=== PATIENT | male | born 1960 | race Caucasian/White ===

== ENCOUNTER 2016-10-28 06:56 | Day surgery (SDC) | payer MEDICARE, MEDICAID ==
[2016-10-28] MEDS ORDERED: SODIUM CHLORIDE 0.9% 1,000 ML IV ONE (07:23)
[2016-10-28] MEDS ORDERED: HYDROmorphone 1 MG/ML SYRINGE IVP STA ×2 (07:23→09:34)
[2016-10-28] MEDS ORDERED: ONDANSETRON 4 MG/2 ML VIAL IVP STA (07:23)
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
[2016-10-28] MEDS ORDERED: ONDANSETRON 4 MG/2 ML VIAL ONE (07:33)
[2016-10-28] MEDS ORDERED: HYDROmorphone 1 MG/ML SYRINGE ONE ×3 (07:33→15:20)
[2016-10-28 07:41] LABS: BASOPHILS # (AUTO) 0.1 10^3/uL (0.0-0.1); BASOPHILS % (AUTO) 0.9 %; EOSINOPHILS # (AUTO) 0.2 10^3/uL (0.0-0.7); EOSINOPHILS % (AUTO) 2.8 %; HCT - HEMATOCRIT 42.7 % (42.0-52.0); HGB - HEMOGLOBIN 14.5 g/dL (14.0-18.0); LYMPHOCYTES # (AUTO) 1.2 10^3/uL (1.5-3.5); LYMPHOCYTES % (AUTO) 16.6 %; MEAN CORPUSCULAR HEMOGLOBIN 30.7 pg (27.0-31.0); MEAN CORPUSCULAR HGB CONC 33.9 g/dL (32.0-36.0); MEAN CORPUSCULAR VOLUME 90.7 fL (80.0-94.0); MEAN PLATELET VOLUME 8.3 fL (7.4-11.4); MONOCYTES # (AUTO) 0.6 10^3/uL (0.0-1.0); MONOCYTES % (AUTO) 8.2 %; NEUTROPHILS % (AUTO) 71.5 %; RED BLOOD COUNT 4.71 10^6/uL (4.70-6.10); RED CELL DISTRIBUTION WIDTH 13.1 % (12.0-15.0); UNCORRECTED WHITE BLOOD COUNT 6.9 x10^3/uL; WHITE BLOOD COUNT 6.9 x10^3/uL (4.8-10.8)
[2016-10-28 07:52] LABS: ALBUMIN/GLOBULIN RATIO 1.4 (1.0-2.2); BILIRUBIN,TOTAL 0.7 mg/dL (0.2-1.0); CALCIUM 8.7 mg/dL (8.5-10.3); POTASSIUM 4.1 mmol/L (3.5-5.0); TOTAL PROTEIN 6.8 g/dL (6.7-8.2)
--- NOTE | 2016-10-28 09:36 | XRAY Preliminary Report ---
Exam: XR Ribs w/PA Chest RT IMPRESSION: 1. No rib fracture evident. 2. No pneumothorax or pleural effusion. 3. Elongated lucency within proximal left humeral shaft adjacent to proximal humeral prosthesis. Ques tion prosthesis loosening. Recommend clinical correlation, dedicated left humeral series and comparis on to prior exams. [facility] SITE ID: [id number]
--- NOTE | 2016-10-28 12:06 | Ultrasound Report ---
RIGHT UPPER QUADRANT ULTRASOUND: 10/28/2016 CLINICAL INDICATION: Pain. TECHNIQUE: Real-time scanning was performed with traffic representative static images obtained. FINDINGS: Image quality is limited by patient body habitus and hepatic echogenicity. The liver measures at least 25 cm. Hepatic echogenicity is diffusely increased, with penetration butt ited. Likely small cysts are noted in the anterior left lobe. Questionable fatty sparing is seen an terior to the portal vein. The majority of the right lobe is poorly visualized. The common bile emigdio t is not confidently identified. The gallbladder demonstrates cholelithiasis. The right kidney vinny ures 9.7 cm, and demonstrates no hydronephrosis. IMPRESSION: CHOLELITHIASIS. MARKEDLY ECHOGENIC LIVER, LIMITING EVALUATION. JOB #: [id number] EXT JOB #:
[2016-10-28] MEDS ORDERED: BUPIVACAINE 0.5% PF 30 ML VIAL INFIL ONE (13:37)
[2016-10-28] MEDS ORDERED: LACTATED RINGERS 1,000 ML IV ONE (13:37)
[2016-10-28] MEDS ORDERED: NEOSTIGMINE 1 MG/1 ML 10 ML MDV IVP ONE (14:00)
[2016-10-28] MEDS ORDERED: ROCURONIUM 50 MG/5 ML VIAL IVP ONE (14:00)
[2016-10-28] MEDS ORDERED: GLYCOPYRROLATE 1 MG/5 ML VIAL IVP ONE (14:00)
[2016-10-28] MEDS ORDERED: ONDANSETRON 4 MG/2 ML VIAL IVP ONE (14:00)
[2016-10-28] MEDS ORDERED: ePHEDrine 50 MG/ML VIAL IVP ONE (14:00)
[2016-10-28] MEDS ORDERED: PROPOFOL 200 MG/20 ML VIAL IVP ONE (14:00)
[2016-10-28] MEDS ORDERED: PIPERACILLIN/TAZOBACTAM 3.375 GM in SODIUM CHLORIDE 0.9% MINIBAG 100 ML IV SCH (14:00)
[2016-10-28] MEDS ORDERED: LIDOCAINE-MPF 2% 5 ML VIAL IM ONE (14:00)
[2016-10-28] MEDS ORDERED: SUCCINYLCHOLINE 200 MG/10 ML VIAL IVP ONE (14:00)
[2016-10-28] MEDS ORDERED: MIDAZOLAM 2 MG/2 ML VIAL IVP ONE (14:00)
[2016-10-28] MEDS ORDERED: DEXAMETHASONE 4 MG/ML VIAL IVP ONE (14:00)
[2016-10-28] MEDS ORDERED: KETOROLAC 30 MG/ML VIAL IVP ONE (14:00)
[2016-10-28] MEDS ORDERED: ACETAMINOPHEN 1,000 MG/100 ML VIAL IV ONE (14:00)
[2016-10-28] MEDS ORDERED: fentaNYL 100 MCG/2 ML VIAL IVP ONE (14:00)
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
[2016-10-28] MEDS: fentaNYL 100 MCG/2 ML VIAL ONE ×2 (15:12→15:17)
[2016-10-28] MEDS ORDERED: oxyCOD/ACETAMIN 5 MG/325 MG TABLET PO ONE (15:43)
[2016-10-28 16:33] VITALS: BP 136/88
--- NOTE | 2016-10-29 11:31 | OPERATIVE REPORT ---
DATE OF SURGERY: 10/28/2016 00:00:00 PREOPERATIVE DIAGNOSIS: 1. Biliary colic. 2. Hepatomegaly. 3. Ventral hernia. POSTOPERATIVE DIAGNOSIS: 1. Biliary colic. 2. Hepatomegaly. 3. Ventral hernia. NAME OF PROCEDURE: Laparoscopic cholecystectomy, with ventral herniorrhaphy and Tu-Cut liver biopsy . SURGEON: Tu Rice M.D. ANESTHESIA: Márquez (General endotracheal, plus 30 mL of 0.5% Marcaine). ESTIMATED BLOOD LOSS: Less than 5 mL. URINE OUTPUT: 200 mL. FLUIDS: 1700 mL of crystalloid. SPECIMEN REMOVED: Gallbladder and contents. Please note the hernia sac was not sent for pathologic evaluation. DETAILS OF PROCEDURE: After informed consent was obtained detailing the risks of infection, bleeding with all of its risks including transfusion, bile duct injury, and , the patient was brought to the operative suite and placed supine on the operating room table. The patient received preoperativ e antibiotics for prophylaxis against surgical infection. The patient had TEDs and Venodynes placed for prophylaxis against deep venous thrombosis. General endotracheal anesthesia was induced by Evaristo Márquez, and Evaristo Márquez provided anesthesia care for the entirety of the case. The patient was p repped and draped in the usual standard manner. At this point, a time-in was done that confirmed the patient's identity via three separate identifier s, including the patient's name, date of , and medical record number, as well as the fact that t he consent was in the chart, the history and physical had been done, the proposed procedure, the kiana ent's allergies, the patient's medications, and that we had the personnel and equipment required to p erform the proposed procedure. With the agreement of everyone in the room, the operation was allowed to proceed. A vertical incision was made at the midline overlying the ventral hernia, which was located in the oconnor praumbilical position. This was selected as a site due to the patient's body habitus and that normal laparoscopic equipment would not be able to reach the subhepatic space if we had gone in the umbilic us, and in addition to which I was able to repair this and use the ventral hernia as the point of ent ry into the abdomen. Dissection was carried out down to the hernia sac using primarily Bovie electro cautery. Hemostasis was obtained using Bovie electrocautery. The sac was excised using Bovie electr ocautery. Next, 0-PDS as well as some #1-PDS sutures were then placed in the fascia superiorly and i nferiorly to allow for placement of the balloon-tipped blunt-tipped 12 mm cannula and to allow for in sufflation of the abdomen. The upper sutures were tied, thus closing the fascial defect partially to allow for insufflation to occur. The cannula was placed. The other sutures were snugged down tight , but were not tied. The abdomen was then insufflated to a steady state pressure of 15 mmHg with car bon dioxide. Following placement of this port, the patient was then rotated onto his left side and i nto reverse Trendelenburg position to allow for visualization of the liver and gallbladder. Three ad ditional 5 mm ports were placed in the subxiphoid, as well as the subcostal position. The two in the subcostal position were placed in the midclavicular line, as well as the anterior axillary line. Al l of these were placed under direct vision and without incident. The lateral two most ports were use d to place graspers to grab the gallbladder and rotate it superiorly and laterally to allow for disse ction. The subxiphoid port was used as the primary dissecting port. The cystic duct and artery were dissect ed free from the surrounding tissues. These were clearly seen, and the critical view was seen and ph otographed. The cystic artery was first doubly clipped proximally and distally, and transected, foll owed by the cystic duct, which was doubly clipped proximally and distally. This was also transected. The gallbladder was then removed from the liver bed using serial application of Bovie electrocauter y. The gallbladder itself was not entered, nor was there bleeding from the liver bed. Once the gall bladder was free, photographs were taken of the gallbladder bed as well as the gallbladder that had j ust been removed from the gallbladder bed. This was placed into an EndoPouch, which was placed throu gh the 12 mm port. The 30-degree 5 mm camera was placed in the subxiphoid port to allow for visualiz ation of this. With the gallbladder in the EndoPouch, attention was placed to performing a Tu-Cut l iver biopsy due to the patient's hepatomegaly. A small stab incision was made in the right upper irma drant using a #11-blade knife. Through this was inserted a Tu-Cut needle. Under direct vision, the liver was biopsied. The needle hole was cauterized using Bovie electrocautery. An adequate specime n was obtained and placed in formalin for evaluation. There was no bleeding noted from the liver bio psy site. In fact, a photograph was taken to confirm this. All four port sites were then injected u sing 0.5% Marcaine for long-term anesthetic control. This was done at the peritoneal, fascial, and s kin levels. The 12 mm port was removed from the supraumbilical position, and the gallbladder, safely ensconced in the EndoPouch, was similarly removed. This was sent off for pathologic evaluation. The previously placed sutures were then tied tight, closing the fascia. Two additional sutures with #0-PDS and #1-P DS were similarly placed to close the fascia securely and thus repair his ventral hernia. The subcut aneous tissues at the ventral hernia site were closed using an 0-Vicryl suture. The skin was approxi mated at all port sites using a 4-0 Monocryl in a running subcuticular fashion. The place where the Tu-Cut needle biopsy was placed did not require suture closure. It was far too small. The patient was subsequently extubated and taken to the recovery room in good and stable condition, h aving tolerated this procedure well. Please note a time-out was done at the conclusion of the case, confirming the operation done, the estimated blood loss, the urine output, the fluids that were given , and any changes that could be done that might improve the operation in the future. The patient was then taken to the recovery room in good and stable condition, having tolerated the procedure well. JOB #: [id number] EXT JOB #:[id number]
--- NOTE | 2016-11-16 12:46 | XRAY Report ---
EXAM: PA CHEST AND RIGHT RIB RADIOGRAPHY EXAM DATE: 10/28/2016 0842 AM. CLINICAL HISTORY: R rib pain. COMPARISON: None. TECHNIQUE: 2 views. FINDINGS: Bones: Normal. No fracture or bone lesion. Lungs: No focal opacities evident. no pneumothorax or pleural effusions. Mediastinum: Heart and cardiomediastinal contours are unremarkable. Other: Prior left shoulder replacement. Elongated lucency along proximal left humeral shaft adjacent to the prosthesis. IMPRESSION: 1. No rib fracture evident. 2. no pnemothorax or pleural effusion. 3. Elongated lucency within proximal left humeral shaft adjacent to proximal humeral prosthesis. Question prosthesis loosening. Recommend clinical correlation, dedicated left humeral series and comparison to prior exams. [facility] MTDD
== END 2016-10-28 12:58 | disposition home or self-care (01) ==
LOC: ED 06:56 → SDS 12:57
PROVIDERS: ATTEND Surgery
PROC: 0FB03ZX Excision of Liver, Percutaneous Approach, Diagnostic (ICD-10-PCS; 2016-10-28)
PROC: 0FT44ZZ Resection of Gallbladder, Percutaneous Endoscopic Approach (ICD-10-PCS; principal; 2016-10-28 13:00)
DX: K80.44 Calculus of bile duct with chronic cholecystitis without obstruction (principal); K43.9 Ventral hernia without obstruction or gangrene; K76.0 Fatty (change of) liver, not elsewhere classified; R16.0 Hepatomegaly, not elsewhere classified; I50.20 Unspecified systolic (congestive) heart failure; I10 Essential (primary) hypertension; T84.038D Mechanical loosening of other internal prosthetic joint, subsequent encounter; Z87.891 Personal history of nicotine dependence; E66.01 Morbid (severe) obesity due to excess calories; Z68.41 Body mass index [BMI] 40.0-44.9, adult; R73.9 Hyperglycemia, unspecified; Z96.612 Presence of left artificial shoulder joint; Z80.8 Family history of malignant neoplasm of other organs or systems; Z83.3 Family history of diabetes mellitus; R06.83 Snoring
CPT/HCPCS: 36415; 47001; 47562; 71101; 76705; 80053; 83690; 85025; 88304; 88307; 88313; 96374; 96375; 96376; 99283; 99284; A9270; J0131; J1170; J7120

== ENCOUNTER 2016-11-06 12:15 | Emergency (ER) | payer MEDICARE, MEDICAID ==
[2016-11-06 14:05] LABS: ALBUMIN/GLOBULIN RATIO 1.3 (1.0-2.2); BILIRUBIN,TOTAL 0.6 mg/dL (0.2-1.0); CALCIUM 9.1 mg/dL (8.5-10.3); CREATININE 1.4 mg/dL (0.6-1.2); MEAN CORPUSCULAR HGB CONC 33.9 g/dL (32.0-36.0); POTASSIUM 4.3 mmol/L (3.5-5.0); UNCORRECTED WHITE BLOOD COUNT 7.6 x10^3/uL; WHITE BLOOD COUNT 7.6 x10^3/uL (4.8-10.8)
[2016-11-06 14:12] VITALS: BP 114/103
[2016-11-06 14:34] LABS: BASOPHILS # (AUTO) 0.1 10^3/uL (0.0-0.1); BASOPHILS % (AUTO) 0.9 %; EOSINOPHILS # (AUTO) 0.3 10^3/uL (0.0-0.7); EOSINOPHILS % (AUTO) 4.5 %; HCT - HEMATOCRIT 41.4 % (42.0-52.0); LYMPHOCYTES # (AUTO) 1.2 10^3/uL (1.5-3.5); LYMPHOCYTES % (AUTO) 16.4 %; MEAN CORPUSCULAR HEMOGLOBIN 30.5 pg (27.0-31.0); MEAN CORPUSCULAR VOLUME 90.2 fL (80.0-94.0); MEAN PLATELET VOLUME 9.1 fL (7.4-11.4); MONOCYTES # (AUTO) 0.7 10^3/uL (0.0-1.0); MONOCYTES % (AUTO) 8.9 %; NEUTROPHILS # (AUTO) 5.3 10^3/uL (1.5-6.6); NEUTROPHILS % (AUTO) 69.3 %; RED BLOOD COUNT 4.59 10^6/uL (4.70-6.10); RED CELL DISTRIBUTION WIDTH 12.9 % (12.0-15.0)
--- NOTE | 2016-11-06 15:10 | CT Preliminary Report ---
Exam: CT Abdomen/Pelvis W/O IMPRESSION: 1. Colonic diverticulosis without evidence of diverticulitis. 2. Fatty infiltration of the liver. 3. Fat-containing supraumbilical hernia. 4. 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 [facility] SITE ID: [id number]
--- NOTE | 2016-11-06 15:13 | CT Report ---
EXAM: CT ABDOMEN AND PELVIS EXAM DATE: 11/06/2016 02:31 PM. CLINICAL HISTORY: Postoperative abdominal pain and distention. COMPARISONS: None. TECHNIQUE: Routine helical CT imaging was performed through the abdomen and pelvis. IV contrast: None . Enteric contrast: No. Reconstructions: Coronal and sagittal. In accordance with CT protocol optimization, one or more of the following dose reduction techniques w ere utilized for this exam: automated exposure control, adjustment of mA and/or KV based on patient s ize, or use of iterative reconstructive technique. FINDINGS: Lung Bases: Small bulla within the right lower lobe with subpleural pulmonary nodules, largest measur ing 5 mm. Liver: Normal in contour with a cyst near the dome measuring 10 mm. Some focal increased density devang cent to the gallbladder fossa, likely focal fatty sparing. Diffusely decreased density of the liver c onsistent with mild fatty infiltration. Gallbladder/Bile Ducts: Status post cholecystectomy. Spleen: Normal. Pancreas: Normal. Adrenal Glands: Normal. Kidneys: Normal. No masses or hydronephrosis. Peritoneal Cavity/Bowel: Fat-containing supraumbilical hernia. The stomach is unremarkable and there are no dilated loops of large or small intestine. Appendix is u nremarkable. Note is made of underlying diverticular disease of the colon without focal inflammation. Pelvic Organs: Normal. The bladder and visualized pelvic organs are within normal limits. Vasculature: Atherosclerosis without abdominal aortic aneurysm. Bones: Status post right total hip replacement. Spondylolysis L5 with anterolisthesis at L5-S1 measur ing 6 mm. Other: None. IMPRESSION: 1. Colonic diverticulosis without evidence of diverticulitis. 2. Fatty infiltration of the liver. 3. Fat-containing supraumbilical hernia. 4. 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 [facility] Referring Provider Line: [phone] SITE ID: [id number]
--- NOTE | 2016-11-06 15:26 | ED Physician Documentation ---
History of Present Illness - Stated complaint Stated Complaint: POST OP SITE REDNESS - Chief complaint Chief Complaint: Wound - Additonal information Additional information: hx from pt 56 male s/p lap moody, ventral hernia repair and liver bx followed up in clinic and had some erythema around the incisions and was started on bactrim increased redness now no fever NVD having BMs thinks he is a bit bloated Review of Systems Constitutional: denies: Fever, Chills GI: reports: Abdominal Swelling Skin: reports: Rash PD PAST MEDICAL HISTORY - Past Surgical History General: Cholecystectomy - Present Medications Home Medications: Ambulatory Orders Medication Instructions Recorded Confirmed Aspirin [Aspirin EC] 81 mg PO DAILY 10/28/16 10/28/16 Carvedilol [Coreg] 12.5 mg PO BID 10/28/16 10/28/16 Furosemide [Lasix] 40 mg PO DAILY 10/28/16 10/28/16 Hydrocodone/Acetaminophen 1 tab PO Q4H 10/28/16 10/28/16 [Hydrocodon-Acetaminophn 10-325] Losartan Potassium [Cozaar] 100 mg PO DAILY 10/28/16 10/28/16 Omeprazole [PriLOSEC] 20 mg PO QDAC 10/28/16 10/28/16 Simvastatin [Zocor] 40 mg PO QPM 10/28/16 10/28/16 buPROPion [Wellbutrin Xl] 150 mg PO DAILY 10/28/16 10/28/16 Cephalexin [Keflex] 500 mg PO Q6H #28 capsule 11/06/16 Mupirocin Calcium [Bactroban] 1 applic TP BID #30 g 11/06/16 - Allergies Allergies/Adverse Reactions: Allergies Allergy/AdvReac Type Severity Reaction Status Date / Time No Known Drug Allergies Allergy Verified 11/06/16 12:23 - Social History Does the pt smoke?: No Smoking Status: Never smoker Does the pt drink ETOH?: No Does the pt have substance abuse?: No - Immunizations Immunizations: TDAP >10years/unknown - POLST Patient has POLST: No PD ED PE NORMAL - Vitals Vital signs reviewed: Yes - Neck Neck: Supple, no meningeal sign - Cardiac Cardiac: RRR - Respiratory Respiratory: No respiratory distress, Clear bilaterally - Abdomen Abdomen: Other (mod distension, + BS, NT, eruthema round umbilical incisions and also around RQ port incisions, papular rash to back, no oral lesions) Results - Vitals Vitals: Vital Signs - 24 hr 11/06/16 11/06/16 12:19 14:12 Temperature 35.9 C L Heart Rate 75 72 Respiratory 14 17 Rate Blood Pressure 139/88 H 114/103 H O2 Saturation 98 96 Oxygen O2 Source Room air - Labs Labs: Laboratory Tests 11/06/16 11/06/16 13:30 13:30 WBC 7.6 RBC 4.59 L Hgb 14.0 Hct 41.4 L MCV 90.2 MCH 30.5 MCHC 33.9 RDW 12.9 Plt Count 279 MPV 9.1 Neut # 5.3 Lymph # 1.2 L [place] # 0.7 Eos # 0.3 Baso # 0.1 Absolute Nucleated RBC 0.00 Nucleated RBCs 0.0 Sodium 140 Potassium 4.3 Chloride 104 Carbon Dioxide 25 Anion Gap 11.0 BUN 14 Creatinine 1.4 H Estimated GFR (MDRD) 52 L Glucose 112 H Calcium 9.1 Total Bilirubin 0.6 AST 22 ALT 33 Alkaline Phosphatase 88 Total Protein 7.0 Albumin 4.0 Globulin 3.0 Albumin/Globulin Ratio 1.3 Lipase 26 - Rads (name of study) CT abd pelvis Radiology: See rad report (diverticulosis no - itis, fatty infiltration of the liver, fat containing supraumbical hernia spondylosis) PD MEDICAL DECISION MAKING - ED course ED course: seen by surgeon as well will dc bactrim that was started earlier this week because 1) cellulitis seems worse an 2) the papular rash may be a drug rxn and 3) his renal fxn has declined on the bactrim will change to keflex and bactroban Departure - Departure Disposition: 01 Home, Self Care Clinical Impression: Renal insufficiency Postoperative wound cellulitis Qualifiers: Encounter type: initial encounter Qualified Code(s): T81.4XXA - Infection following a procedure, initial encounter Condition: Good Instructions: ED Infec Skin Cellulitis Prescriptions: Mupirocin Calcium [Bactroban] 1 applic TP BID #30 g Cephalexin [Keflex] 500 mg PO Q6H #28 capsule Comments: Stop the bactrim - it doesnt seem to be helping the infection and it is affecting your kidneys and may be causing the rash on your back Change to keflex 4 X daily Also apply bactroban cream or ointment to the incisions twice daily for a week Follow in surgery clinic for a recheck later this week Also the CT scan shows that there is some fat protruding where the hernia repair was done so the hernia may re-occur and you have some diverticulosis which is small pouches that develop along the coon wall over time - this is not dangerous unless one of the pouches becomes infected which is not the case for you today And please follow up with your PMD about your blood pressure - it was high today - also have your PMD recheck your kidney function in a week
== END 2016-11-06 15:53 | disposition home or self-care (01) ==
LOC: ED 12:15
DX: T81.4XXA Infection following a procedure, initial encounter (principal); L03.311 Cellulitis of abdominal wall; Y83.8 Other surgical procedures as the cause of abnormal reaction of the patient, or of later complication, without mention of misadventure at the time of the procedure; Z90.49 Acquired absence of other specified parts of digestive tract; N28.9 Disorder of kidney and ureter, unspecified; R21 Rash and other nonspecific skin eruption; R03.0 Elevated blood-pressure reading, without diagnosis of hypertension; K57.30 Diverticulosis of large intestine without perforation or abscess without bleeding; K42.9 Umbilical hernia without obstruction or gangrene; Z79.82 Long term (current) use of aspirin
CPT/HCPCS: 36415; 74176; 80053; 83690; 85025; 99283

== ENCOUNTER 2016-12-05 10:17 | Day surgery (SDC) | payer MEDICARE, MEDICAID ==
[2016-12-05] MEDS ORDERED: LACTATED RINGERS 1,000 ML IV ONE (11:15)
--- NOTE | 2016-12-05 11:30 | SURGERY HX AND PHYSICAL(T) ---
Surgical History & Physical - PMH/PSH/Social Hx Does the pt have a hx of MRSA?: No Eyes, Ears, Nose, Throat: None Cardiovascular: Congestive heart failure, Hypertension, Other Respiratory: Shortness of breath, Sleep apnea Skin: None Endocrine/Autoimmune: None Gastrointestinal: Cholelithiasis, Other Urinary: None Musculoskeletal: None Psychiatric: None General: Cholecystectomy Orthopedic: Hip replacement, Shoulder arthroplasty Eyes Ears Nose Throat (EENT): Tonsil/Adenoidectomy Smoking Status: Never smoker Does the pt drink ETOH?: No Does the pt have substance abuse?: No - Home Meds and Allergies Home Medications: Aspirin [Aspirin EC] 81 mg PO DAILY 10/28/16 Carvedilol [Coreg] 12.5 mg PO BID 10/28/16 Furosemide [Lasix] 40 mg PO DAILY 10/28/16 Losartan Potassium [Cozaar] 100 mg PO DAILY 10/28/16 Omeprazole [PriLOSEC] 20 mg PO QDAC 10/28/16 Simvastatin [Zocor] 40 mg PO QPM 10/28/16 buPROPion [Wellbutrin Xl] 150 mg PO DAILY 10/28/16 Allergies/Adverse Reactions: Allergies Allergy/AdvReac Type Severity Reaction Status Date / Time No Known Drug Allergies Allergy Verified 11/06/16 12:23 - Vital Signs Temperature: 36. C Respiratory Rate: 18 O2 Saturation: 97 Weight (kg): 134.7 kg Height: 1.8 m - Patient Review Patient Review: Problems were reviewed with the patient during this visit. Medications were reviewed with the patient during this visit. Allergies were reviewed this patient during this visit. Pertinent Tests Reviewed: All pertitent test for this patient were reviewed. - Assessment & Plan Assessment and Plan: Zena Camilo PA-C initially sent this very pleasant 56 year-old male to my office in consultation for change in bowel habits back on October 21, 2016. Since that time he was admitted to the ED at [facility] and I removed his gallbladder , biopsied his liver and fixed his umbilical hernia. Prior to surgery his bowel movement were a bit less regular and alternating between constipation and disarrhea and the recent surgery did not help this. He denies nausea, vomiting , melena, hematochezia, hematemesis, abdominal pain, unexplained weight loss, or change in the color, character or caliber of his stool. The patient denies any previous colon evaluation including barium enema, sigmoidoscopy or colonoscopy. The indications for the procedure have not changed. Allergies: None. Current Meds: SUPREP BOWEL PREP SOLN (NA SULFATE-K SULFATE-MG SULF) Take as directed SIMVASTATIN 40 MG TABS (SIMVASTATIN) Take one tablet by mouth at bedtime OMEPRAZOLE 20 MG CPDR (OMEPRAZOLE) Take one capsule by mouth daily LOSARTAN POTASSIUM 100 MG TABS (LOSARTAN POTASSIUM) Take one tablet by mouth every morning FUROSEMIDE 40 MG TABS (FUROSEMIDE) Take one tablet by mouth every morning CARVEDILOL 12.5 MG ORAL TABS (CARVEDILOL) Take one tablet by mouth twice daily with food ASPIRIN EC 81 MG TBEC (ASPIRIN) Take one tablet by mouth daily BUPROPION HCL ER (SR) 150 MG ORAL [id number] (BUPROPION HCL) Take one tablet by mouth daily Past Medical History: Abdominal hernia. Frequent ear infections Irregular heartbeat CHF hypertension severe snoring heartburn Acid reflux hiatal hernia Past Surgical History: Partial left shoulder bx 1997 and then replacement 1997. Right hip replacement 2012. Tonsillectomy as a child Laparoscopic cholecystectomy and umbilical herniorrhaphy Family History Summary: Reviewed history and no changes required: 11/02/2016 Mother (biol.) - Has Family History of Diabetes - Entered On: 07/15/2016 Father (biol.) - Has a father - Entered On: 07/15/2016 General Comments - FH: Father from mesothelioma Mother: DM, fibromyalgia Sister: DM MGM: DM MGF: DM Risk Factors: Smoked Tobacco Use: Former smoker Cigarettes: Yes -- 1/4 pack(s) per day, Year started: 1978 Years smoked: 40 Year quit: 2017 Years Since Last Quit: 0 Passive smoke exposure: no Drug use: no HIV high-risk behavior: no Caffeine use: <1 drinks per day Alcohol use: yes Type: beer Drinks per day: <1 Exercise: no Seatbelt use: 100 % Sun Exposure: frequently Review of Systems CONSTITUTIONAL: No weight loss, fever, chills, weakness or fatigue. HEENT: Eyes: No visual loss, blurred vision, double vision or yellow sclerae. Ears, Nose, Throat: No hearing loss, sneezing, congestion, runny nose or sore throat. SKIN: No rash or itching. CARDIOVASCULAR: No chest pain, chest pressure or chest discomfort. No palpitations or edema. RESPIRATORY: No shortness of breath, cough or sputum. GASTROINTESTINAL: See above. GENITOURINARY: No dysuria. No impotence. NEUROLOGICAL: No headache, dizziness, syncope, paralysis, ataxia, numbness or tingling in the extremities. No change in bowel or bladder control. MUSCULOSKELETAL: No muscle, back pain, joint pain or stiffness. HEMATOLOGIC: No anemia, bleeding or bruising. LYMPHATICS: No enlarged nodes. No history of splenectomy. PSYCHIATRIC: No history of depression or anxiety. ENDOCRINOLOGIC: No reports of sweating, cold or heat intolerance. No polyuria or polydipsia. ALLERGIES: No history of asthma, hives, eczema or rhinitis. Physical Exam General: 56-year old obese male, appears slightly older than stated age, well developed, well nourished HEENT: Normocephalic, atraumatic, extraocular movement intact, mucous membranes pink and moist, sclera anicteric and not injected Neck: Supple without pain on palpation, mass or bruit Cardiac: Regular rate and rhythm without rub, gallop, or murmur Chest: Clear to auscultation bilaterally Abdomen: Soft, nontender, normoactive bowel sounds, no hepatomegaly, no splenomegaly Genitourinary: Deferred Rectal: Deferred until colonoscopy Extremities: No gross neurovascular problem, no clubbing, cyanosis or edema Gait: Not evaluated. Psychiatric: Alert and oriented to person place and time, asks and answers questions appropriately, mood and affect appropriate Impression & Recommendations: Colonoscopy with possible biopsies and/or polypectomies to evaluate change in bowel habits but this is also the patient's first colonoscopy. Indications, procedure, alternatives (such as barium enema, Cologuard and even no procedure at all) and risks including but not limited to perforation requiring operative repair, bleeding with its risks, and were fully explained to him in the office. In the office I tyree diagrams explaining the colonic anatomy and the proposed procedure and handed it to him. Conscious sedation was discussed at length with him as were its risks including but not limited to loss of airway, aspiration, respiratory depression, and not enough relief of pain and anxiety and he indicated that he wished to have conscious sedation for his procedure. I explained that MAC anesthesia is associated with a higher incidence of colon perforation. Review of his history does not and did not reveal any significant systemic disease that would contraindicate use of conscious sedation or MAC anesthesia. All questions were fully answered. Verbal and written consent was obtained. The patient in preparation for his colonoscopy has been n.p.o. and his colon has been mechanically prepped. 15 minutes of [id number] time spent with the patient the majority of which was spent in discussion
[2016-12-05] MEDS ORDERED: METOCLOPRAMIDE 10 MG/2 ML VIAL IVP ONE (12:25)
[2016-12-05] MEDS ORDERED: GLYCOPYRROLATE 1 MG/5 ML VIAL IVP ONE (12:25)
[2016-12-05] MEDS ORDERED: ONDANSETRON 4 MG/2 ML VIAL IVP ONE (12:25)
[2016-12-05] MEDS ORDERED: LIDOCAINE-MPF 2% 5 ML VIAL IM ONE (12:25)
[2016-12-05] MEDS ORDERED: PROPOFOL 200 MG/20 ML VIAL IVP ONE (12:25)
[2016-12-05 13:28] VITALS: BP 133/73
== END 2016-12-05 10:18 | disposition home or self-care (01) ==
LOC: SDS 10:17
PROVIDERS: ATTEND Surgery
PROC: 0DBK8ZX Excision of Ascending Colon, Via Natural or Artificial Opening Endoscopic, Diagnostic (ICD-10-PCS; 2016-12-05)
PROC: 0DBP8ZX Excision of Rectum, Via Natural or Artificial Opening Endoscopic, Diagnostic (ICD-10-PCS; principal; 2016-12-05 11:15)
DX: Z12.11 Encounter for screening for malignant neoplasm of colon (principal); D12.2 Benign neoplasm of ascending colon; K62.1 Rectal polyp; K57.30 Diverticulosis of large intestine without perforation or abscess without bleeding; K64.8 Other hemorrhoids; Z87.891 Personal history of nicotine dependence; E66.9 Obesity, unspecified; Z68.41 Body mass index [BMI] 40.0-44.9, adult
CPT/HCPCS: 45380; 45385; J7120; 88305

== ENCOUNTER 2016-12-22 10:57 | Emergency (ER) | payer MEDICARE, MEDICAID ==
--- NOTE | 2016-12-22 14:02 | XRAY Report ---
EXAM: CHEST RADIOGRAPHY EXAM DATE: 12/22/2016 01:38 PM. CLINICAL HISTORY: Cough x 2 weeks. COMPARISON: CHEST RADIOGRAPHY 10/28/2016. TECHNIQUE: 2 views. FINDINGS: Lungs/Pleura: Ill-defined mildly increased opacities in the right mid zone probably in the superior s egment of the right lower lobe suspicious for mild pneumonia, not present in the prior study. No pleu ral effusion. No pneumothorax. No vascular congestion. Normal volumes. Mediastinum: Heart and mediastinal contours are unremarkable. Other: Left shoulder arthroplasty. IMPRESSION: Ill-defined mildly increased opacities in the right mid zone probably in the superior seg ment of the right lower lobe suspicious for mild pneumonia, not present in the prior study. [facility] Referring Provider Line: [phone] SITE ID: [id number]
[2016-12-22] MEDS ORDERED: IPRATROPIUM/ALBUTEROL 3 ML NEB INH STA (14:47)
[2016-12-22] MEDS ORDERED: AZITHROMYCIN 250 MG TABLET PO STA (14:47)
--- NOTE | 2016-12-22 14:50 | ED Physician Documentation ---
PD HPI URI - Stated complaint Stated Complaint: COUGH - Chief complaint Chief Complaint: Resp - History obtained from History obtained from: Patient, Family - History of Present Illness Timing - onset: How many weeks ago (1) Timing duration: Weeks (1) Timing details: Gradual onset Pain level max: 0 Pain level now: 0 Associated symptoms: Chills, Dry cough, Dyspnea. No: Hemoptysis, Chest pain, NVD, Bilateral edema, Unilateral edema Contributing factors: Sick contact, COPD / asthma (smoked for 40 years, quit in july). No: Immunocompromised, Unimmunized Improves by: Rest Worsened by: Activity, Breathing Recently seen: Not recently seen Review of Systems Ten Systems: 10 systems reviewed and negative Constitutional: denies: Fever, Chills Ears: denies: Ear pain GI: denies: Vomiting Skin: denies: Rash Musculoskeletal: denies: Neck pain, Back pain Neurologic: denies: Headache PD PAST MEDICAL HISTORY - Past Medical History Past Medical History: Yes Cardiovascular: Congestive heart failure, Hypertension - Past Surgical History General: Cholecystectomy - Present Medications Home Medications: Ambulatory Orders Medication Instructions Recorded Confirmed Aspirin [Aspirin EC] 81 mg PO DAILY 10/28/16 12/22/16 Carvedilol [Coreg] 12.5 mg PO BID 10/28/16 12/22/16 Furosemide [Lasix] 40 mg PO DAILY 10/28/16 12/22/16 Losartan Potassium [Cozaar] 100 mg PO DAILY 10/28/16 12/22/16 Omeprazole [PriLOSEC] 20 mg PO QDAC 10/28/16 12/22/16 Simvastatin [Zocor] 40 mg PO QPM 10/28/16 12/22/16 buPROPion [Wellbutrin Xl] 150 mg PO DAILY 10/28/16 12/22/16 Albuterol Sulf [Ventolin Hfa 2 puffs INH Q4HR PRN #1 inhaler 12/22/16 Inhaler] Azithromycin [Zithromax] 250 mg PO DAILY #4 tablet 12/22/16 - Allergies Allergies/Adverse Reactions: Allergies Allergy/AdvReac Type Severity Reaction Status Date / Time No Known Drug Allergies Allergy Verified 11/06/16 12:23 - Social History Does the pt smoke?: No Smoking Status: Never smoker Does the pt drink ETOH?: No Does the pt have substance abuse?: No - Immunizations Immunizations: TDAP >10years/unknown - POLST Patient has POLST: No PD ED PE NORMAL - Vitals Vital signs reviewed: Yes - General General: Alert and oriented X 3, No acute distress - HEENT HEENT: Ears normal, Moist mucous membranes, Pharynx benign - Neck Neck: Supple, no meningeal sign - Cardiac Cardiac: RRR, Strong equal pulses - Respiratory Respiratory: No respiratory distress, Other (dimished BS bilaterally.) - Abdomen Abdomen: Soft, Non tender, Non distended - Derm Derm: Warm and dry, No rash - Neuro Neuro: Alert and oriented X 3 - Psych Psych: Normal mood, Normal affect Results - Vitals Vitals: Vital Signs - 24 hr 12/22/16 12/22/16 12/22/16 11:04 14:28 14:56 Temperature 36.0 C L 37.0 C Heart Rate 69 74 79 Respiratory 24 19 18 Rate Blood Pressure 140/99 H 122/81 H O2 Saturation 97 97 12/22/16 15:26 Temperature 37.0 C Heart Rate 80 Respiratory 18 Rate Blood Pressure 144/78 H O2 Saturation 97 Oxygen O2 Source Room air - Rads (name of study) cxr Radiology: Prelim report reviewed, EMP read contemporaneously, See rad report ( Ill-defined mildly increased opacities in the right mid zone probably in the superior segment of the right lower lobe suspicious for mild pneumonia, not present in the prior study. ) PD MEDICAL DECISION MAKING - ED course Complexity details: reviewed results, re-evaluated patient, considered differential, d/w patient, d/w family ED course: Patient is a 56-year-old male who presents to the emergency department with what appears to be a right middle lobe pneumonia. He is well-appearing, nontoxic. Afebrile. No hypoxia. Given a nebulizer treatment and breathing improved. No respiratory distress. Will place on antibiotics and inhalers for home. Patient and family counseled regarding signs and symptoms for which I believe and urgent re-evaluation would be necessary. Patient with good understanding of and agreement to plan and is comfortable going home at this time This document was made in part using voice recognition software. While efforts are made to proofread this document, sound alike and grammatical errors may occur. Departure - Departure Disposition: 01 Home, Self Care Clinical Impression: Pneumonia Qualifiers: Pneumonia type: due to unspecified organism Laterality: right Lung location: middle lobe of lung Qualified Code(s): J18.1 - Lobar pneumonia, unspecified organism Condition: Good Instructions: ED Pneumonia Adult Follow-Up: Zena Camilo PA-C [Primary Care Provider] - Within 1 week Prescriptions: Albuterol Sulf [Ventolin Hfa Inhaler] 2 puffs INH Q4HR PRN #1 inhaler PRN Reason: Wheezing Azithromycin [Zithromax] 250 mg PO DAILY #4 tablet Comments: Take all antibiotics until gone. Return if you worsen. Discharge Date/Time: 12/22/16 15:26
[2016-12-22] MEDS ORDERED: IPRATROPIUM/ALBUTEROL 3 ML NEB INH ONE (14:54)
[2016-12-22] MEDS ORDERED: AZITHROMYCIN 250 MG TABLET PO ONE (15:03)
[2016-12-22 15:26] VITALS: BP 144/78
== END 2016-12-22 15:26 | disposition home or self-care (01) ==
LOC: ED 10:57
DX: J18.9 Pneumonia, unspecified organism (principal); I11.0 Hypertensive heart disease with heart failure; I50.9 Heart failure, unspecified; Z79.82 Long term (current) use of aspirin
CPT/HCPCS: 71020; 94640; 94664; 99283; A9270; J7620

== ENCOUNTER 2017-04-01 08:51 | Emergency (ER) | payer MEDICARE, MEDICAID ==
--- NOTE | 2017-04-01 09:31 | ED Physician Documentation ---
PD HPI LOWER EXT INJURY - Stated complaint Stated Complaint: R LEG INJ/GLF - Chief complaint Chief Complaint: Ext Problem - History obtained from History obtained from: Patient - History of Present Illness PD HPI LOW EXT INJURY LOCATION: Right, Knee Type of injury: Twist (he had twisting externall of right knee with pain onset of lateral aspect, which continues since. Injury was few days ago and having considerable pain with walking and bending knee since.) Improved by: Rest Worsened by: Moving, Palpating Associated symptoms: No: Weakness, Numbness, Swelling, Discolored Contributing factors: Prior ortho surgery (left hip replacement, and left shoulder surgery.) Similar symptoms before: Has not had sx before Recently seen: Not recently seen Review of Systems Constitutional: denies: Fever, Chills Skin: denies: Rash, Lesions Neurologic: denies: Focal weakness, Numbness PD PAST MEDICAL HISTORY - Past Medical History Cardiovascular: Congestive heart failure, Hypertension - Past Surgical History General: Cholecystectomy Ortho: Hip replacement, Rotator cuff repair - Present Medications Home Medications: Ambulatory Orders Medication Instructions Recorded Confirmed Aspirin [Aspirin EC] 81 mg PO DAILY 10/28/16 04/01/17 Carvedilol [Coreg] 12.5 mg PO BID 10/28/16 04/01/17 Furosemide [Lasix] 40 mg PO DAILY 10/28/16 04/01/17 Losartan Potassium [Cozaar] 100 mg PO DAILY 10/28/16 04/01/17 Omeprazole [PriLOSEC] 20 mg PO QDAC 10/28/16 04/01/17 Simvastatin [Zocor] 40 mg PO QPM 10/28/16 04/01/17 buPROPion [Wellbutrin Xl] 150 mg PO DAILY 10/28/16 04/01/17 HYDROcod/ACETAM 5/325 [[place] 5/325] 1 tab PO Q6H PRN #20 tablet 04/01/17 - Allergies Allergies/Adverse Reactions: Allergies Allergy/AdvReac Type Severity Reaction Status Date / Time No Known Drug Allergies Allergy Verified 11/06/16 12:23 - Social History Does the pt smoke?: No Smoking Status: Never smoker Does the pt drink ETOH?: Yes Does the pt have substance abuse?: No - Immunizations Immunizations are current?: Yes Immunizations: TDAP >10years/unknown - POLST Patient has POLST: No PD ED PE NORMAL - Vitals Vital signs reviewed: Yes - General General: Alert and oriented X 3, Well developed/nourished - Back Back: No spinal TTP - Derm Derm: Normal color, Warm and dry - Extremities Extremities: No edema, No calf tenderness / cord, Other (right knee with tenderness laterally and at proximal fibular head. Medially not tender. No effusion. Cruciate testing without pain nor laxity. ) Results - Vitals Vitals: Vital Signs - 24 hr 04/01/17 04/01/17 08:56 11:17 Temperature 36.8 C 36.7 C Heart Rate 107 H 68 Respiratory 18 16 Rate Blood Pressure 153/88 H 136/84 H O2 Saturation 95 92 Oxygen O2 Source Room air - Rads (name of study) right knee Radiology: Prelim report reviewed, EMP read contemporaneously (fibular head cortical irregular suggesting nondisplaced fracture. ) PD MEDICAL DECISION MAKING - ED course Complexity details: reviewed results, considered differential (tender at fibular head. No gross laxity with stress testing. Pain with varus stress suggesting LCL injury, though could be just the fibular head from torsional injury. He has left shoulder problems, so will try crutches for at least partial weight bearing. ), d/w patient Departure - Departure Disposition: 01 Home, Self Care Clinical Impression: Fracture of head of right fibula Qualifiers: Encounter type: initial encounter Fracture type: closed Qualified Code(s): S82.831A - Other fracture of upper and lower end of right fibula, initial encounter for closed fracture Condition: Stable Record reviewed to determine appropriate education?: Yes Instructions: ED Fx Knee Follow-Up: Zena Camilo PA-C [Primary Care Provider] - Prescriptions: HYDROcod/ACETAM 5/325 [[place] 5/325] 1 tab PO Q6H PRN #20 tablet PRN Reason: Pain Comments: Use knee brace when up and around for the next month. You can have it off when rested or sleeping though it may feel more comfortable to have it on initially when sleeping 2. Crutches for partial to no weightbearing. Some weightbearing is okay with this. Follow-up with your orthopedist in [place] in about a week , call for an appointment. Use Tylenol or ibuprofen if needed for pains. Add hydrocodone if needed. There is fracture off the head of the fibula which often represents a ligament twisting injury that pulled it off. This will likely take 4-6 weeks to heal but the worst of it would be the first 1-2 weeks. Your orthopedist may allow some range of motion after that time. But you should follow-up with him about it. Discharge Date/Time: 04/01/17 11:52
[2017-04-01] MEDS ORDERED: IBUPROFEN 600 MG TABLET PO STA (09:46)
[2017-04-01] MEDS ORDERED: HYDROcod/ACETAM 5/325 MG TABLET PO STA ×2 (09:46→11:33)
[2017-04-01] MEDS ORDERED: HYDROcod/ACETAM 5/325 MG TABLET ONE ×2 (09:54→11:44)
[2017-04-01] MEDS ORDERED: IBUPROFEN 600 MG TABLET PO ONE (09:54)
--- NOTE | 2017-04-01 11:10 | XRAY Preliminary Report ---
Exam: XR KNEE 4 VIEW RT IMPRESSION: Cortical irregularity about the fibular head suggestive of fracture without significant d isplacement. [facility] SITE ID: [id number]
--- NOTE | 2017-04-01 11:12 | XRAY Report ---
EXAM: RIGHT KNEE RADIOGRAPHY EXAM DATE: 04/01/2017 10:49 AM. CLINICAL HISTORY: Knee pain post fall/twisting injury. COMPARISON: None. TECHNIQUE: 4 views. FINDINGS: Bones: There is cortical irregularity seen about the fibular head suggestive of fracture. Femur and t ibia appear intact. Joints: Trace suprapatellar joint effusion seen. Soft Tissues: Normal. No soft tissue swelling. IMPRESSION: Cortical irregularity about the fibular head suggestive of fracture without significant d isplacement. [facility] Referring Provider Line: [phone] SITE ID: [id number]
[2017-04-01 11:19] VITALS: BP 136/84
== END 2017-04-01 11:52 | disposition home or self-care (01) ==
LOC: ED 08:51
DX: S82.831A Other fracture of upper and lower end of right fibula, initial encounter for closed fracture (principal); W01.0XXA Fall on same level from slipping, tripping and stumbling without subsequent striking against object, initial encounter; I11.0 Hypertensive heart disease with heart failure; I50.9 Heart failure, unspecified; Z79.82 Long term (current) use of aspirin
CPT/HCPCS: 73564; 99283; A9270

== ENCOUNTER 2017-05-08 15:15 | Emergency (ER) | payer MEDICARE, MEDICAID ==
--- NOTE | 2017-05-08 16:24 | XRAY Preliminary Report ---
Exam: XR CHEST 2 VIEW PA/LAT IMPRESSION: No acute disease. [facility] SITE ID: [id number]
--- NOTE | 2017-05-08 16:26 | XRAY Report ---
EXAM: CHEST RADIOGRAPHY EXAM DATE: 05/08/2017 04:01 PM. CLINICAL HISTORY: Cough, congestion. COMPARISON: 10/28/2016. Also CT scan dated 11/06/2016. TECHNIQUE: 2 views. FINDINGS: Lungs/Pleura: Atelectasis or scarring left base. No acute infiltrate, consolidation, effusion, or pne umothorax. Mediastinum: Heart and mediastinal contours are unremarkable. Other: Left shoulder prosthesis. Mild anterior vertebral body height loss of T11, present on previous CT. IMPRESSION: No acute disease. [facility] Referring Provider Line: [phone] SITE ID: [id number]
[2017-05-08] MEDS ORDERED: IPRATROPIUM/ALBUTEROL 3 ML NEB INH STA (16:36)
--- NOTE | 2017-05-08 16:36 | ED Physician Documentation ---
History of Present Illness - Stated complaint Stated Complaint: CONGESTION/COUGH - Chief complaint Chief Complaint: Resp - History obtained from History obtained from: Patient - History of Present Illness Timing: Other (56-year-old gentleman with history of hypertension presents with cough for 3 days duration, clear sputum. No fevers or chills but he is mildly short of breath at night and the cough is keeping him up.) Review of Systems Constitutional: denies: Fever, Chills Nose: reports: Rhinorrhea / runny nose. denies: Congestion Throat: denies: Sore throat Cardiac: denies: Chest pain / pressure, Palpitations PD PAST MEDICAL HISTORY - Past Medical History Cardiovascular: Congestive heart failure, Hypertension - Past Surgical History General: Cholecystectomy Ortho: Hip replacement, Rotator cuff repair - Present Medications Home Medications: Ambulatory Orders Medication Instructions Recorded Confirmed Aspirin [Aspirin EC] 81 mg PO DAILY 10/28/16 04/01/17 Carvedilol [Coreg] 12.5 mg PO BID 10/28/16 04/01/17 Furosemide [Lasix] 40 mg PO DAILY 10/28/16 04/01/17 Losartan Potassium [Cozaar] 100 mg PO DAILY 10/28/16 04/01/17 Omeprazole [PriLOSEC] 20 mg PO QDAC 10/28/16 04/01/17 Simvastatin [Zocor] 40 mg PO QPM 10/28/16 04/01/17 buPROPion [Wellbutrin Xl] 150 mg PO DAILY 10/28/16 04/01/17 HYDROcod/ACETAM 5/325 [[place] 5/325] 1 tab PO Q6H PRN #20 tablet 04/01/17 Albuterol Sulfate [Proventil Hfa 1 - 2 puffs IH Q4H PRN #1 05/08/17 Inhaler] hfa.aer.ad Benzonatate [Tessalon] 200 mg PO QID PRN #20 capsule 05/08/17 guaiFENesin/CODEINE [Robitussin AC] 5 - 10 ml PO Q6H PRN #120 ml 05/08/17 predniSONE [Deltasone] 60 mg PO DAILY 5 Days tablet 05/08/17 - Allergies Allergies/Adverse Reactions: Allergies Allergy/AdvReac Type Severity Reaction Status Date / Time No Known Drug Allergies Allergy Verified 05/08/17 15:50 - Social History Does the pt smoke?: Yes Smoking Status: Current every day smoker Does the pt drink ETOH?: Yes Does the pt have substance abuse?: No - Immunizations Immunizations are current?: Yes Immunizations: TDAP >10years/unknown - POLST Patient has POLST: No PD ED PE NORMAL - Vitals Vital signs reviewed: Yes - General General: Alert and oriented X 3, No acute distress - HEENT HEENT: PERRL, EOMI, Ears normal, Moist mucous membranes, Pharynx benign - Neck Neck: Supple, no meningeal sign, No bony TTP - Cardiac Cardiac: RRR, No murmur - Respiratory Respiratory: No respiratory distress, Other (Good air motion, mild expiratory wheezes, no focal findings) - Abdomen Abdomen: Non tender - Extremities Extremities: No edema, No calf tenderness / cord - Neuro Neuro: Alert and oriented X 3, Normal speech Results - Vitals Vitals: Vital Signs - 24 hr 05/08/ 15:43 Temperature 36 C L Heart Rate 77 Respiratory 20 Rate Blood Pressure 132/84 H O2 Saturation 97 Oxygen O2 Source Room air - Rads (name of study) 2v chest Radiology: EMP read contemporaneously (normal) PD MEDICAL DECISION MAKING - ED course ED course: 56-year-old gentleman with cough, productive but no evidence of bacterial infection or pneumonia at this juncture. A DuoNeb here with home-going prescriptions. The patient and family were counseled as to the diagnosis and need for follow- up. I counseled the patient with regard to signs and symptoms that would necessitate an urgent reevaluation in the emergency department. They understand they are welcome to return at any time if worse or if not improving as expected. This document was made in part using voice recognition software. While efforts are made to proofread this documents, sound alike and grammatical errors may occur. Departure - Departure Disposition: 01 Home, Self Care Clinical Impression: Viral bronchitis Condition: Good Record reviewed to determine appropriate education?: Yes Instructions: ED Bronchitis Asthmatic Prescriptions: Albuterol Sulfate [Proventil Hfa Inhaler] 1 - 2 puffs IH Q4H PRN #1 hfa.aer.ad PRN Reason: Cough Benzonatate [Tessalon] 200 mg PO QID PRN #20 capsule PRN Reason: Cough guaiFENesin/CODEINE [Robitussin AC] 5 - 10 ml PO Q6H PRN #120 ml PRN Reason: Cough predniSONE [Deltasone] 60 mg PO DAILY 5 Days tablet
[2017-05-08 17:14] VITALS: BP 124/82
== END 2017-05-08 17:14 | disposition home or self-care (01) ==
LOC: ED 15:15
DX: J20.8 Acute bronchitis due to other specified organisms (principal); I11.0 Hypertensive heart disease with heart failure; I50.9 Heart failure, unspecified; F17.200 Nicotine dependence, unspecified, uncomplicated; Z96.649 Presence of unspecified artificial hip joint
CPT/HCPCS: 71020; 94640; 99283; J7620

== ENCOUNTER 2017-07-18 06:16 | Day surgery (SDC) | payer MEDICARE, MEDICAID ==
[2017-07-18] MEDS ORDERED: LACTATED RINGERS 1,000 ML IV ONE ×2 (06:32→08:15)
[2017-07-18] MEDS ORDERED: CEFAZOLIN IV ONE (06:32)
[2017-07-18] MEDS ORDERED: ceFAZolin 3 GM/20 ML SYRINGE ONE (06:35)
[2017-07-18] MEDS ORDERED: BUPIVACAINE 0.25% PF 30 ML VIAL SUBQ ONE ×2 (08:05)
[2017-07-18] MEDS: LACTATED RINGERS 1,000 ML IV ONE (08:15)
[2017-07-18] MEDS ORDERED: NEOSTIGMINE 1 MG/1 ML 10 ML MDV IVP ONE (09:05)
[2017-07-18] MEDS ORDERED: PHENYLEPHRINE 10 MG/ML VIAL IV ONE (09:05)
[2017-07-18] MEDS ORDERED: GLYCOPYRROLATE 1 MG/5 ML VIAL IVP ONE (09:05)
[2017-07-18] MEDS ORDERED: MIDAZOLAM 2 MG/2 ML VIAL IVP ONE (09:05)
[2017-07-18] MEDS ORDERED: LIDOCAINE-MPF 2% 5 ML VIAL IM ONE (09:05)
[2017-07-18] MEDS ORDERED: fentaNYL 100 MCG/2 ML VIAL IVP ONE (09:05)
[2017-07-18] MEDS ORDERED: SUCCINYLCHOLINE 200 MG/10 ML VIAL IVP ONE (09:05)
[2017-07-18] MEDS ORDERED: KETOROLAC 30 MG/ML VIAL IVP ONE (09:05)
[2017-07-18] MEDS ORDERED: PROPOFOL 200 MG/20 ML VIAL IVP ONE (09:05)
[2017-07-18] MEDS: fentaNYL 100 MCG/2 ML VIAL ONE ×2 (09:22→09:30)
--- NOTE | 2017-07-18 09:30 | OPERATIVE REPORT ---
Operative Report - General Procedure Date: 07/18/17 Planned Procedure: Incisional herniorrhaphy Pre-Op Diagnosis: Incisional hernia Procedure Performed: Incisional herniorrhaphy with mesh Post Op Diagnosis: Incisional hernia - Procedure Note Primary Surgeon: Tu Rice MD Anesthesia Provider: Olivia Callahan CRNA Anesthesia Technique: General ET tube, Local (60 mL 1/4% marcaine) IV Fluids (mL): 1,200 Estimated Blood Loss (mL): 5 Complications: None. - Other Other Information/Narrative: OPERATIVE DESCRIPTION/REPORT: After verbal and written informed consent was obtained detailing the risks of infection, bleeding requiring transfusion with its risks, nerve injury, and , and after I met with the patient confirming the surgery and the site of the surgery, the patient was brought to the operative suite and placed supine on the operating table. Great care was taken to avoid pressure points to prevent pressure necrosis or nerve injury. Monitoring devices were applied along with TEDs and pneumatic compressive stockings (to prevent DVT). The patient received preoperative antibiotics for surgical prophylaxis. [ anesthesiologist] sedated and anethetized the patient for the entire procedure. The patient was prepped and draped in the usual sterile manner. With the patient draped my initials were clearly visible. A "time in" then confirmed that the patient was identified with 3 identifiers (name, date and medical record number), the history and physical was in the chart, the signed consent confirming the procedure was in the chart, the patient was in the correct position, the aforementioned prophylactic measures were in place or given, we had the correct personnel and equipment to complete the procedure and that anesthesia, surgery and nursing were given an opportunity to express any concerns. With the agreement of everyone in the room, we proceeded with the operation. After anesthetizing the skin with 1/4% marcaine, a vertical midline incision was made overlying the mass tracing the previous incision and dissection was carried down to the hernia sac using a combination of Metzenbaum scissors, scalpel, and Bovie electrocautery. The incision had to be made a little bit longer due to the size of the hernia sac. The sac was cleared of overlying adherent tissue, and the fascial defect was delineated. The fascia was cleared of any adherent tissue for a distance 1.5 cm from the defect. The sac was resected using a combination of Metzenbaum scissors but mostly Bovie electrocautery. The defect was closed using a Ventralex ST Hernia Patch (Ref# [id number], Lot #[id number], use by date 2019-04-18) sewing it in place using interrupted 0 PDS. The fascia was closed over this mesh using interrupted 0 Vicryl sutures incorporating the mesh. The subcutaneous tissues were copiously irrigated, and then closed using an interrupted 2-0 Vicryl. Meticulous hemostasis was obtained using Bovie electrocautery. The remaining 1/ 4% marcaine was injected at the fascia and skin. The skin incision was approximated with a running 4-0 Monocryl. At this point a time out was performed that confirmed that all the counts were correct, the procedure that was performed, the blood loss, the IV fluids administered, and the patients condition. Having tolerated the procedure well, the patient was subsequently extubated and taken to recovery room in good and stable condition.
[2017-07-18] MEDS: HYDROmorphone 1 MG/ML SYRINGE ONE ×2 (09:39→09:46)
[2017-07-18] MEDS ORDERED: oxyCOD/ACETAMIN 5 MG/325 MG TABLET PO ONE (10:17)
[2017-07-18 10:31] VITALS: BP 118/75
== END 2017-07-18 06:17 | disposition home or self-care (01) ==
LOC: SDS 06:16
PROVIDERS: ATTEND Surgery
PROC: 0WUF0JZ Supplement Abdominal Wall with Synthetic Substitute, Open Approach (ICD-10-PCS; principal; 2017-07-18 07:30)
DX: K43.2 Incisional hernia without obstruction or gangrene (principal); I11.0 Hypertensive heart disease with heart failure; I50.9 Heart failure, unspecified; Z79.82 Long term (current) use of aspirin; K21.9 Gastro-esophageal reflux disease without esophagitis; Z87.891 Personal history of nicotine dependence
CPT/HCPCS: 49560; 49568; A9270; C1781; J0690; J1170; J7120

== ENCOUNTER 2017-08-22 09:11 | Outpatient (CLI) | payer MEDICARE, MEDICAID ==
[2017-08-22 12:28] LABS: BASOPHILS # (AUTO) 0.1 10^3/uL (0.0-0.1); BASOPHILS % (AUTO) 0.7 %; EOSINOPHILS # (AUTO) 0.2 10^3/uL (0.0-0.7); EOSINOPHILS % (AUTO) 2.3 %; HGB - HEMOGLOBIN 14.6 g/dL (14.0-18.0); LYMPHOCYTES # (AUTO) 1.2 10^3/uL (1.5-3.5); MEAN CORPUSCULAR HEMOGLOBIN 29.7 pg (27.0-31.0); MEAN CORPUSCULAR HGB CONC 33.8 g/dL (32.0-36.0); MEAN CORPUSCULAR VOLUME 88.1 fL (80.0-94.0); MEAN PLATELET VOLUME 8.9 fL (7.4-11.4); MONOCYTES # (AUTO) 0.7 10^3/uL (0.0-1.0); MONOCYTES % (AUTO) 8.3 %; NEUTROPHILS # (AUTO) 5.8 10^3/uL (1.5-6.6); NEUTROPHILS % (AUTO) 73.7 %; PLT - PLATELET COUNT 279 10^3/uL (130-450); WHITE BLOOD COUNT 7.9 x10^3/uL (4.8-10.8)
[2017-08-22 12:38] LABS: ALBUMIN 3.8 g/dL (3.2-5.5); ALBUMIN/GLOBULIN RATIO 1.3 (1.0-2.2); ALKALINE PHOSPHATASE 82 IU/L (42-121); ALT ALANINE AMINOTRANSFERASE 33 IU/L (10-60); AST ASPARTATE AMINOTRANSFERASE 27 IU/L (10-42); BILIRUBIN,TOTAL 0.7 mg/dL (0.2-1.0); BUN - BLOOD UREA NITROGEN 13 mg/dL (6-20); CALCIUM 8.6 mg/dL (8.5-10.3); CARBON DIOXIDE - CO2 28 mmol/L (21-32); CHLORIDE 100 mmol/L (101-111); CHOL/HDL RATIO 4.5 (<5.0); CHOLESTEROL 195 mg/dL; CREATININE 1.2 mg/dL (0.6-1.2); GFR - MDRD 62 (>89); GLUCOSE 119 mg/dL (70-100); HDL CHOLESTEROL 43 mg/dL; LDL CHOLESTEROL,CALCULATED 103 mg/dL; LDL/HDL RATIO 2.4 (<3.6); SODIUM 136 mmol/L (135-145); TOTAL PROTEIN 6.8 g/dL (6.7-8.2); VLDL CHOLESTEROL 49 mg/dL
[2017-08-23 09:53] LABS: HB2 TOTAL 15.6 g/dL; HEMOGLOBIN A1C 0.74 g/dL; HEMOGLOBIN A1C % 6.5 % (4.6-6.2)
== END 2017-08-22 09:12 | disposition home or self-care (01) ==
LOC: LAB.WCP 09:11
PROVIDERS: ATTEND Physician Assistant Medical
DX: E78.5 Hyperlipidemia, unspecified (principal); K21.9 Gastro-esophageal reflux disease without esophagitis
CPT/HCPCS: 36415; 80053; 80061; 83036; 83721; 85025

== ENCOUNTER 2018-02-13 11:27 | Outpatient (CLI) | payer MEDICARE, MEDICAID ==
--- NOTE | 2018-02-13 12:40 | XRAY Report ---
Reason: JOINT REPLACEMENT,LT SHOULER,PAIN Procedure Date: 02/13/2018 Accession Number: [id number] / [id number] Procedure: XR - Shoulder 2 View LT CPT Code: FULL RESULT: EXAM: LEFT SHOULDER RADIOGRAPHY EXAM DATE: 02/13/2018 11:52 AM. CLINICAL HISTORY: Joint replacement, left shoulder pain. COMPARISON: None. TECHNIQUE: 2 views. FINDINGS: The patient is status post left shoulder arthroplasty, which is seen eroding into the glenoid with approximately 5 mm of a lucent osseous rim. No fracture or dislocation is identified. IMPRESSION: Advanced degenerative changes status post left shoulder arthroplasty. RADIA
== END 2018-02-13 11:28 | disposition home or self-care (01) ==
LOC: DI 11:27
PROVIDERS: ATTEND Physician Assistant Medical
DX: M19.012 Primary osteoarthritis, left shoulder (principal); Z96.612 Presence of left artificial shoulder joint

== ENCOUNTER 2018-03-06 10:58 | Outpatient (CLI) | payer MEDICARE, MEDICAID ==
--- NOTE | 2018-03-06 14:40 | CT Report ---
Reason: L SHOULDER PAIN WITH IMPLANT Procedure Date: 03/06/2018 Accession Number: [id number] / [id number] Procedure: CT - Upper Extremity Left W/O CPT Code: FULL RESULT: EXAM: LEFT UPPER EXTREMITY CT WITHOUT CONTRAST EXAM DATE: 03/06/2018 11:37 AM. CLINICAL HISTORY: Left shoulder pain with implant. COMPARISON: Shoulder 2 view left 02/13/2018 11:40 AM. TECHNIQUE: Thin-section axial images were acquired of the upper extremity without contrast. Post-processing: Coronal and sagittal reformats. Other: None. In accordance with CT protocol optimization, one or more of the following dose reduction techniques were utilized for this exam: automated exposure control, adjustment of mA and/or KV based on patient size, or use of iterative reconstructive technique. FINDINGS: Bones: There is a left shoulder hemiarthroplasty with chronic anterosuperior subluxation and pseudoarticulation to the supraglenoid scapula and base of the coracoid. The glenoid is partially deformed with the residual glenoid seen just inferior to the humeral head component with cystic change along the anterosuperior border. In addition, there is thin lucency extending between the humeral stem cement and bone, 50% of the distance down the femoral stem and measuring up to 0.2 cm in thickness. Joints: Deformity of the left shoulder with hemiarthroplasty described above. Acromioclavicular joint unremarkable. Musculature: Normal. No fatty atrophy. Other: Mild emphysema. Calcified granuloma posterior left upper lobe. IMPRESSION: 1. Anterosuperior subluxation of the humeral head prosthesis, with pseudoarticulation to the supraglenoid scapula and base of the coracoid. 2. Partial erosion of the anterosuperior glenoid with cystic change at the base of the humeral head component. 3. Circumferential lucency around the humeral stem bone-cement interface at least 50% of the way down the stem, raising concern for potential loosening of the humeral component. RADIA
== END 2018-03-06 10:59 | disposition home or self-care (01) ==
LOC: DI 10:58
PROVIDERS: ATTEND Orthopaedic Surgery
DX: T84.028A Dislocation of other internal joint prosthesis, initial encounter (principal); M85.812 Other specified disorders of bone density and structure, left shoulder

== ENCOUNTER 2018-04-23 13:08 | Emergency (ER) | payer MEDICARE, MEDICAID ==
--- NOTE | 2018-04-23 14:21 | ED Physician Documentation ---
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 The PICC line is in the right brachial area of the arm. The noticed some bruising and redness color around the insertion site for the PICC line and were concerned about it. They called the nurse line and were told to come to the ER. He had pain medication last about 3-4 hours ago and states it is wearing off at this time.) Timing - duration: Days (1) Timing - details: Gradual onset Location: RUE (Slight redness and bruising color around the insertion site of the PICC line.) Quality / character: Discolored. No: Itchy, Painful, Burning Associated symptoms: No: Fever, Myalgias Recently seen: Admitted (He was just in [facility] for treatment of a left shoulder surgical infection and will be on home antibiotics IV.) Review of Systems Constitutional: denies: Fever, Chills PD PAST MEDICAL HISTORY - Past Medical History Cardiovascular: Congestive heart failure, Hypertension, High cholesterol, Murmur Respiratory: COPD, Shortness of breath Endocrine/Autoimmune: None GI: GERD, Chronic diarrhea, Cholelithiasis, Other : None HEENT: Chronic hearing loss Psych: Depression, Anxiety, Other Musculoskeletal: None Derm: None - Past Surgical History General: Cholecystectomy, Colonoscopy, Other Ortho: Hip replacement, Rotator cuff repair - Present Medications Home Medications: Ambulatory Orders Medication Instructions Recorded Confirmed Carvedilol [Coreg] 12.5 mg PO BID 10/28/16 04/23/18 Furosemide [Lasix] 40 mg PO DAILY 10/28/16 04/23/18 Losartan Potassium [Cozaar] 100 mg PO DAILY 10/28/16 04/23/18 Omeprazole [PriLOSEC] 20 mg PO DAILY 10/28/16 04/23/18 Simvastatin [Zocor] 40 mg PO QPM 10/28/16 04/23/18 buPROPion [Wellbutrin Xl] 150 mg PO DAILY 10/28/16 04/23/18 Cholestyramine (with Sugar) 4 gm PO BID 07/17/17 04/23/18 [Cholestyramine Packet] Gabapentin 300 mg PO 04/23/18 HYDROmorphone [Dilaudid] 2 mg PO 04/23/18 HYDROmorphone [Dilaudid] 2 mg PO Q6H PRN #20 tablet 04/23/18 Methocarbamol 600 mg PO DAILY 04/23/18 04/23/18 Ondansetron [Ondansetron Odt] 4 mg PO PRN PRN 04/23/18 04/23/18 Rifampin [Rifadin] 300 mg PO DAILY 04/23/18 04/23/18 - Allergies Allergies/Adverse Reactions: Allergies Allergy/AdvReac Type Severity Reaction Status Date / Time No Known Drug Allergies Allergy Verified 07/17/17 16:34 - Social History Does the pt smoke?: Yes Smoking Status: Current every day smoker Does the pt drink ETOH?: Yes Does the pt have substance abuse?: No - Immunizations Immunizations are current?: Yes Immunizations: TDAP >10years/unknown - POLST Patient has POLST: No PD ED PE NORMAL - Vitals Vital signs reviewed: Yes - General General: Alert and oriented X 3, Well developed/nourished - Derm Derm: Normal color, Warm and dry - Extremities Extremities: Other (right upper arm with PICC line in place and mild ecchymosis around the skin insertion site. No infectious redness nor warmth. No apparent discharge. ) Results - Vitals Vitals: Oxygen O2 Source Room air PD MEDICAL DECISION MAKING - ED course Complexity details: considered differential (This appears to be some bruising very localized around the PICC line insertion site that was placed 2 days ago. This is an appropriate timeframe for some of the blood to just be migrating to the surface and does not look infected. His left shoulder surgical site does need a dressing change and will do that for him.), d/w patient Departure - Departure Disposition: 01 Home, Self Care Clinical Impression: Visit for wound check Condition: Stable Record reviewed to determine appropriate education?: Yes Follow-Up: Garcia Musa PA-C [Primary Care Provider] - Prescriptions: HYDROmorphone [Dilaudid] 2 mg PO Q6H PRN #20 tablet PRN Reason: Pain Comments: Continue usual medications and wound care. Follow-up with orthopedics and infectious disease at [facility] as planned. Discharge Date/Time: 04/23/18 15:29
[2018-04-23] MEDS ORDERED: KETOROLAC 60 MG/2 ML VIAL IVP STA (14:41)
[2018-04-23] MEDS ORDERED: HYDROmorphone 1 MG/ML CARPUJECT IVP STA (14:41)
[2018-04-23 15:29] VITALS: BP 144/88
== END 2018-04-23 15:29 | disposition home or self-care (01) ==
LOC: ED 13:08
DX: T82.898A Other specified complication of vascular prosthetic devices, implants and grafts, initial encounter (principal); S40.021A Contusion of right upper arm, initial encounter; Y84.8 Other medical procedures as the cause of abnormal reaction of the patient, or of later complication, without mention of misadventure at the time of the procedure; M86.8X1 Other osteomyelitis, shoulder; Z98.890 Other specified postprocedural states; Z48.01 Encounter for change or removal of surgical wound dressing; I10 Essential (primary) hypertension; F17.200 Nicotine dependence, unspecified, uncomplicated
CPT/HCPCS: 96374; 99282; 99283; J1170

== ENCOUNTER 2018-04-27 14:44 | Emergency (ER) | payer MEDICARE, MEDICAID ==
[2018-04-27] MEDS ORDERED: NYSTATIN CREAM 15 GM TUBE TOP STA (15:25)
[2018-04-27] MEDS ORDERED: HYDROmorphone 2 MG TABLET PO STA ×2 (15:26→18:34)
--- NOTE | 2018-04-27 16:34 | XRAY Report ---
Reason: CP Procedure Date: 04/27/2018 Accession Number: [id number] / [id number] Procedure: XR - Chest 1 View X-Ray CPT Code: 01971 FULL RESULT: EXAM: CHEST RADIOGRAPHY EXAM DATE: 04/27/2018 03:51 PM. CLINICAL HISTORY: Chest pain and shortness of breath for 2 days. COMPARISON: CHEST 2 VIEW PA/LAT 08/16/2017 3:54 PM. TECHNIQUE: 1 view. FINDINGS: Lungs/Pleura: Minimal plate-like atelectasis left base. Right lung is clear. Right PICC line tip at cavoatrial junction. No pneumothorax. Mildly low lung volumes. Mediastinum: Within exam limitations, the cardiomediastinal contour is normal. Other: Recent left shoulder explantation. Skin joselin. IMPRESSION: Mildly low lung volumes with plate-like atelectasis left base. RADIA
--- NOTE | 2018-04-27 16:49 | ED Physician Documentation ---
History of Present Illness - Stated complaint Stated Complaint: CHEST PX/SOA - Chief complaint Chief Complaint: Cardiac - History obtained from History obtained from: Patient, Family () - Additonal information Additional information: The patient is a 57-year-old male who is 8 days status post removal of a left humeral prosthesis for osteomyelitis, who presents with 2 complaints. He reports chest tightness and shortness of breath that has been progressing over the past 2 days. He has history of CHF, COPD, and gastroesophageal reflux disease. He also complains of rash in the left axillary region. He has a PICC line in the right upper extremity for antibiotic therapy. He was seen here 4 days ago for evaluation of his PICC line, which was determined to have slight bruising at the insertion site, without evidence of cellulitis. Rash in the left axilla was noted at that time, and the patient's reports that the rash is becoming progressively worse since that time. The surgical site of the left shoulder has been draining transudate of fluid. His has placed a sleeve over the arm to soak the drainage. Antifungal cream has been prescribed for the rash, but his states she is not able to apply it because he is not able to abduct his left arm away from his chest wall. He has been using Dilaudid 2-4 mg every 4 hours for pain. He denies cough, fever, nausea or vomiting. Review of Systems Constitutional: denies: Fever Nose: denies: Congestion Throat: denies: Sore throat Cardiac: reports: Chest pain / pressure. denies: Palpitations Respiratory: reports: Dyspnea. denies: Cough GI: denies: Abdominal Pain, Nausea, Vomiting : denies: Dysuria Skin: reports: Rash (left axilla) Musculoskeletal: reports: Extremity pain (Left shoulder at surgical site.). denies: Back pain Neurologic: denies: Focal weakness, Numbness, Headache PD PAST MEDICAL HISTORY - Past Medical History Past Medical History: Yes Cardiovascular: Congestive heart failure, Hypertension, High cholesterol, Murmur Respiratory: COPD, Shortness of breath Endocrine/Autoimmune: None GI: GERD, Chronic diarrhea, Cholelithiasis, Other : None HEENT: Chronic hearing loss Psych: Depression, Anxiety, Other Musculoskeletal: None Derm: None - Past Surgical History Past Surgical History: Yes General: Cholecystectomy, Colonoscopy, Other Ortho: Hip replacement, Rotator cuff repair - Present Medications Home Medications: Ambulatory Orders Medication Instructions Recorded Confirmed Carvedilol [Coreg] 12.5 mg PO BID 10/28/16 04/27/18 Furosemide [Lasix] 40 mg PO DAILY 10/28/16 04/27/18 Losartan Potassium [Cozaar] 100 mg PO DAILY 10/28/16 04/27/18 Omeprazole [PriLOSEC] 20 mg PO DAILY 10/28/16 04/27/18 Simvastatin [Zocor] 40 mg PO QPM 10/28/16 04/27/18 buPROPion [Wellbutrin Xl] 150 mg PO DAILY 10/28/16 04/27/18 Cholestyramine (with Sugar) 4 gm PO BID 07/17/17 04/27/18 [Cholestyramine Packet] Gabapentin 300 mg PO 04/23/18 HYDROmorphone [Dilaudid] 2 mg PO 04/23/18 HYDROmorphone [Dilaudid] 2 mg PO Q6H PRN #20 tablet 04/23/18 04/27/18 Methocarbamol 600 mg PO DAILY 04/23/18 04/27/18 Ondansetron [Ondansetron Odt] 4 mg PO PRN PRN 04/23/18 04/27/18 Rifampin [Rifadin] 300 mg PO DAILY 04/23/18 04/27/18 Clotrimazole [Clotrimazole AF] 30 gm TP DAILY 10 Days #2 tube 04/27/18 Fluconazole 200 mg PO DAILY #5 tablet 04/28/18 - Allergies Allergies/Adverse Reactions: Allergies Allergy/AdvReac Type Severity Reaction Status Date / Time No Known Drug Allergies Allergy Verified 04/28/18 15:04 - Social History Does the pt smoke?: Yes Smoking Status: Current every day smoker Does the pt drink ETOH?: Yes Does the pt have substance abuse?: No - Immunizations Immunizations are current?: Yes Immunizations: TDAP >10years/unknown - POLST Patient has POLST: No PD ED PE NORMAL - Vitals Vital signs reviewed: Yes (Hypertensive.) - General General: Alert and oriented X 3, Other (Alert obese, deconditioned male.) - HEENT HEENT: Atraumatic, Moist mucous membranes - Neck Neck: No adenopathy, No JVD - Cardiac Cardiac: RRR - Respiratory Respiratory: Clear bilaterally, Other (Shallow breathing.) - Abdomen Abdomen: Soft, Non tender, Other (Rotund abdomen.) - Back Back: No CVA TTP - Derm Derm: Other (Erythematous rash in the left axilla extending down the chest wall and the medial aspect of the upper arm, with satellite lesions, consistent with cutaneous fungal infection.) - Extremities Extremities: No calf tenderness / cord, Other (Surgical incision on the anterior aspect of the left shoulder and upper arm is intact with joselin. There is transmitted of drainage from the point of the upper third of the surgical incision site. There is no significant erythema and no purulence. There is discomfort with any movement of the patient's upper arm. Distal neurovascular is intact.) - Neuro Neuro: Alert and oriented X 3, No motor deficit, No sensory deficit, Normal speech Results - Vitals Vitals: Oxygen O2 Source Room air - EKG (time done) 14:51 Rate: Rate (enter#) (89) Rhythm: NSR [place]: Anterior hemiblock Intervals: Normal [place] Ischemia: Normal ST segments Compare to prior EKG: Old EKG unavailable Computer interpretation: Agree with computer - Labs Labs: Laboratory Tests 04/27/18 04/27/18 17:00 17:00 WBC 5.2 RBC 4.54 L Hgb 14.2 Hct 41.5 L MCV 91.3 MCH 31.2 H MCHC 34.2 RDW 13.1 Plt Count 205 MPV 8.3 Neut # (Auto) 3.9 Lymph # (Auto) 0.5 L [place] # (Auto) 0.6 Eos # (Auto) 0.2 Baso # (Auto) 0.0 Absolute Nucleated RBC 0.00 Nucleated RBC % 0.1 Sodium 137 Potassium 2.9 L Chloride 103 Carbon Dioxide 26 Anion Gap 8.0 BUN 11 Creatinine 1.1 Estimated GFR (MDRD) 69 L Glucose 99 Calcium 8.1 L Total Bilirubin 0.8 AST 19 ALT 25 Alkaline Phosphatase 67 Total Protein 5.7 L Albumin 3.2 Globulin 2.5 Albumin/Globulin Ratio 1.3 Lipase 22 - Rads (name of study) 1-view CXR Radiology: Prelim report reviewed, EMP read contemporaneously, See rad report (Mildly low lung volumes, with platelike atelectasis at the left base.) PD MEDICAL DECISION MAKING - ED course Complexity details: reviewed old records, reviewed results, re-evaluated patient, considered differential, d/w patient, d/w family ED course: The patient's presentation is significant for progressive cutaneous fungal infection of the left axilla. This is exacerbated by dampness from transitive drainage from his left shoulder incision site, with the patient unwilling to abduct his left arm to allow cleaning or application of antifungal ointment in the axilla. The etiology of his chest discomfort and shortness of breath is most likely related to a small pneumothorax that reportedly developed during surgery. His chest x-ray today does not reveal evidence of pneumothorax, nor does it reveal evidence of pneumonia or congestive heart failure. It does demonstrate some platelike atelectasis at the left base, which is consistent with his low inspiratory volumes. I do not think his symptoms represent cardiac ischemia or pulmonary embolus. His electrocardiogram reveals no evidence of ischemic abnormality. His chemistry panel is significant for hypokalemia with potassium of 2.9. Treatment in the emergency department included administration of potassium 20 mEq orally. Dilaudid 2 mg was administered orally prior to changing the dressing on his wound and cleaning the skin in his left axilla. Antifungal ointment was applied topically. Prior to discharge a second 2 mg dose of Dilaudid was administered orally. I discussed with the patient and his the importance of skincare in the left axilla and treatment with antifungal cream. He is being discharged with prescription for antifungal cream. I discussed with them potentially worrisome signs or symptoms that should prompt reevaluation in the emergency department. Departure - Departure Disposition: 01 Home, Self Care Clinical Impression: Cutaneous fungal infection, Status post shoulder surgery, Atypical chest pain, Hypokalemia Condition: Stable Instructions: ED Infec Skin Fungal Tinea Follow-Up: Garcia Musa PA-C [Primary Care Provider] - Prescriptions: Clotrimazole [Clotrimazole AF] 30 gm TP DAILY 10 Days #2 tube Comments: Apply antifungal cream to the affected area in the left axilla at least once daily. Wash the area thoroughly with warm soapy water prior to applying the antifungal cream. Continue antibiotic as previously prescribed. Follow-up with your primary physician or with your orthopedic surgeon as scheduled. Return to the emergency department if you develop increasing redness or pain associated with the wound, or otherwise worsening symptoms. Discharge Date/Time: 04/27/18 18:47
[2018-04-27 17:07] LABS: BASOPHILS % (AUTO) 0.7 %; EOSINOPHILS # (AUTO) 0.2 10^3/uL (0.0-0.7); EOSINOPHILS % (AUTO) 4.4 %; HGB - HEMOGLOBIN 14.2 g/dL (14.0-18.0); LYMPHOCYTES # (AUTO) 0.5 10^3/uL (1.5-3.5); LYMPHOCYTES % (AUTO) 10.1 %; MEAN CORPUSCULAR HEMOGLOBIN 31.2 pg (27.0-31.0); MEAN CORPUSCULAR HGB CONC 34.2 g/dL (32.0-36.0); MEAN CORPUSCULAR VOLUME 91.3 fL (80.0-94.0); MEAN PLATELET VOLUME 8.3 fL (7.4-11.4); MONOCYTES # (AUTO) 0.6 10^3/uL (0.0-1.0); MONOCYTES % (AUTO) 10.7 %; NEUTROPHILS # (AUTO) 3.9 10^3/uL (1.5-6.6); NEUTROPHILS % (AUTO) 74.1 %; PLT - PLATELET COUNT 205 10^3/uL (130-450); RED BLOOD COUNT 4.54 10^6/uL (4.70-6.10); RED CELL DISTRIBUTION WIDTH 13.1 % (12.0-15.0); WHITE BLOOD COUNT 5.2 x10^3/uL (4.8-10.8)
[2018-04-27 17:19] LABS: ALBUMIN 3.2 g/dL (3.2-5.5); ALBUMIN/GLOBULIN RATIO 1.3 (1.0-2.2); BILIRUBIN,TOTAL 0.8 mg/dL (0.2-1.0); CALCIUM 8.1 mg/dL (8.5-10.3); CREATININE 1.1 mg/dL (0.6-1.2); TOTAL PROTEIN 5.7 g/dL (6.7-8.2)
[2018-04-27] MEDS ORDERED: POTASSIUM CHLORIDE 20 MEQ TABLET PO STA (17:23)
[2018-04-27 18:25] VITALS: BP 186/110
== END 2018-04-27 18:47 | disposition home or self-care (01) ==
LOC: ED 14:44
DX: B36.9 Superficial mycosis, unspecified (principal); R07.89 Other chest pain; E87.6 Hypokalemia; I10 Essential (primary) hypertension; J44.9 Chronic obstructive pulmonary disease, unspecified; F17.200 Nicotine dependence, unspecified, uncomplicated; Z98.890 Other specified postprocedural states; Z86.79 Personal history of other diseases of the circulatory system
CPT/HCPCS: 36415; 71045; 80053; 83690; 85025; 93005; 96374; 99283; 99284

== ENCOUNTER 2018-04-28 14:44 | Emergency (ER) | payer MEDICARE, MEDICAID ==
[2018-04-28] MEDS ORDERED: HYDROmorphone 1 MG/ML CARPUJECT IVP STA (15:23)
--- NOTE | 2018-04-28 15:39 | ED Physician Documentation ---
History of Present Illness - Stated complaint Stated Complaint: RASH UNDER ARM - Chief complaint Chief Complaint: Wound - History obtained from History obtained from: Patient, Family - History of Present Illness Timing: How many days ago (several) Pain level max: 10 Pain level now: 10 Improved by: nothing Worsened by: nothing - Additonal information Additional information: Patient is a 57-year-old male who presents to the emergency department with left arm redness and swelling. 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 Seen here yesterday and placed on cream for a fungal infection. Worsen today. They contacted his infectious disease physician who recommended transfer to the [facility] admission. Patient denies any fevers. Review of Systems Ten Systems: 10 systems reviewed and negative Constitutional: denies: Fever, Chills Ears: denies: Ear pain Nose: denies: Rhinorrhea / runny nose, Congestion Throat: denies: Sore throat Cardiac: denies: Chest pain / pressure Respiratory: denies: Cough GI: denies: Abdominal Pain, Nausea, Vomiting, Diarrhea Musculoskeletal: denies: Neck pain, Back pain Neurologic: denies: Headache PD PAST MEDICAL HISTORY - Past Medical History Cardiovascular: Congestive heart failure, Hypertension, High cholesterol, Murmur Respiratory: COPD, Shortness of breath Endocrine/Autoimmune: None GI: GERD, Chronic diarrhea, Cholelithiasis, Other : None HEENT: Chronic hearing loss Psych: Depression, Anxiety, Other Musculoskeletal: None Derm: None - Past Surgical History Past Surgical History: Yes General: Cholecystectomy, Colonoscopy, Other Ortho: Hip replacement, Rotator cuff repair - Present Medications Home Medications: Ambulatory Orders Medication Instructions Recorded Confirmed Carvedilol [Coreg] 12.5 mg PO BID 10/28/16 04/27/18 Furosemide [Lasix] 40 mg PO DAILY 10/28/16 04/27/18 Losartan Potassium [Cozaar] 100 mg PO DAILY 10/28/16 04/27/18 Omeprazole [PriLOSEC] 20 mg PO DAILY 10/28/16 04/27/18 Simvastatin [Zocor] 40 mg PO QPM 10/28/16 04/27/18 buPROPion [Wellbutrin Xl] 150 mg PO DAILY 10/28/16 04/27/18 Cholestyramine (with Sugar) 4 gm PO BID 07/17/17 04/27/18 [Cholestyramine Packet] Gabapentin 300 mg PO 04/23/18 HYDROmorphone [Dilaudid] 2 mg PO 04/23/18 HYDROmorphone [Dilaudid] 2 mg PO Q6H PRN #20 tablet 04/23/18 04/27/18 Methocarbamol 600 mg PO DAILY 04/23/18 04/27/18 Ondansetron [Ondansetron Odt] 4 mg PO PRN PRN 04/23/18 04/27/18 Rifampin [Rifadin] 300 mg PO DAILY 04/23/18 04/27/18 Clotrimazole [Clotrimazole AF] 30 gm TP DAILY 10 Days #2 tube 04/27/18 Fluconazole 200 mg PO DAILY #5 tablet 04/28/18 - Allergies Allergies/Adverse Reactions: Allergies Allergy/AdvReac Type Severity Reaction Status Date / Time No Known Drug Allergies Allergy Verified 04/28/18 15:04 - Social History Does the pt smoke?: Yes Smoking Status: Current every day smoker Does the pt drink ETOH?: Yes Does the pt have substance abuse?: No - Immunizations Immunizations are current?: Yes Immunizations: TDAP >10years/unknown - POLST Patient has POLST: No PD ED PE NORMAL - Vitals Vital signs reviewed: Yes - General General: Alert and oriented X 3, No acute distress - HEENT HEENT: Moist mucous membranes - Neck Neck: Supple, no meningeal sign - Cardiac Cardiac: RRR, Strong equal pulses - Respiratory Respiratory: No respiratory distress, Clear bilaterally - Abdomen Abdomen: Soft, Non tender, Non distended - Derm Derm: Warm and dry - Extremities Extremities: Other (L arm and trunk - Diffuse erythema To the medial aspect of the left arm and to the left chest wall. Satellite lesions present. No drainage from the surgical wound. Copake in place.) - Neuro Neuro: Alert and oriented X 3 - Psych Psych: Normal mood, Normal affect Results - Vitals Vitals: Vital Signs - 24 hr 04/28/18 04/28/18 14:58 17:40 Temperature 36.6 C 36.9 C Heart Rate 96 91 Respiratory 25 H 16 Rate Blood Pressure 182/105 H 175/91 H O2 Saturation 94 95 Oxygen O2 Source Room air - Labs Labs: Laboratory Tests 04/28/18 04/28/18 04/28/18 15:10 15:40 15:40 WBC 7.4 RBC 3.92 L Hgb 12.2 L Hct 36.1 L MCV 91.9 MCH 31.1 H MCHC 33.8 RDW 13.3 Plt Count 301 MPV 8.7 Neut # (Auto) 5.4 Lymph # (Auto) 0.9 L [place] # (Auto) 0.7 Eos # (Auto) 0.4 Baso # (Auto) 0.0 Absolute Nucleated RBC 0.00 Nucleated RBC % 0.0 ESR Sodium 138 Potassium 3.2 L Chloride 103 Carbon Dioxide 28 Anion Gap 7.0 BUN 15 Creatinine 1.3 H Estimated GFR (MDRD) 57 L Glucose 126 H Lactic Acid Calcium 8.8 Total Bilirubin 0.7 AST 20 ALT 27 Alkaline Phosphatase 80 C-Reactive Protein 6.3 H Total Protein 6.4 L Albumin 3.5 Globulin 2.9 Albumin/Globulin Ratio 1.2 Lipase 26 04/28/18 04/28/18 15:40 15:44 WBC RBC Hgb Hct MCV MCH MCHC RDW Plt Count MPV Neut # (Auto) Lymph # (Auto) [place] # (Auto) Eos # (Auto) Baso # (Auto) Absolute Nucleated RBC Nucleated RBC % ESR 38 H Sodium Potassium Chloride Carbon Dioxide Anion Gap BUN Creatinine Estimated GFR (MDRD) Glucose Lactic Acid 1.3 Calcium Total Bilirubin AST ALT Alkaline Phosphatase C-Reactive Protein Total Protein Albumin Globulin Albumin/Globulin Ratio Lipase PD MEDICAL DECISION MAKING - ED course Complexity details: reviewed results, re-evaluated patient, considered differential, d/w patient, d/w family, d/w institutional nutrition consultant ED course: Patient is a 57-year-old male with what appears to be a left arm cellulitis and likely fungal infection. Placed on clotrimazole cream yesterday but worsened. Discussed the case with Dr. Pimentel, orthopedics at the [facility] who recommends discussion with infectious disease. Discussed with Dr. Gillis, infectious disease who recommends holding the rifampin and starting fluconazole 200 mg by mouth daily for 5 days. Patient will follow up in clinic early next week with orthopedics at the [facility]. He is well- appearing, nontoxic. Afebrile. No evidence of sepsis. Patient and family counseled regarding signs and symptoms for which I believe and urgent re- evaluation would be necessary. Patient with good understanding of and agreement to plan and is comfortable going home at this time This document was made in part using voice recognition software. While efforts are made to proofread this document, sound alike and grammatical errors may occur. Departure - Departure Disposition: 01 Home, Self Care Clinical Impression: Cutaneous fungal infection, Postoperative wound cellulitis Condition: Stable Instructions: ED Candidiasis Cutaneous Follow-Up: Garcia Musa PA-C [Primary Care Provider] - Prescriptions: Fluconazole 200 mg PO DAILY #5 tablet Comments: Stop the rifampin and start the fluconazole. Follow up with orthopedics early next week. I spoke with Dr. Luevano from orthopedics and Dr. Gillis from infectious disease [facility]. Discharge Date/Time: 04/28/18 17:51
[2018-04-28 15:53] LABS: BASOPHILS % (AUTO) 0.4 %; EOSINOPHILS # (AUTO) 0.4 10^3/uL (0.0-0.7); EOSINOPHILS % (AUTO) 5.3 %; HGB - HEMOGLOBIN 12.2 g/dL (14.0-18.0); LYMPHOCYTES # (AUTO) 0.9 10^3/uL (1.5-3.5); MEAN CORPUSCULAR HEMOGLOBIN 31.1 pg (27.0-31.0); MEAN CORPUSCULAR HGB CONC 33.8 g/dL (32.0-36.0); MEAN CORPUSCULAR VOLUME 91.9 fL (80.0-94.0); MEAN PLATELET VOLUME 8.7 fL (7.4-11.4); MONOCYTES # (AUTO) 0.7 10^3/uL (0.0-1.0); NEUTROPHILS # (AUTO) 5.4 10^3/uL (1.5-6.6); NEUTROPHILS % (AUTO) 72.3 %; PLT - PLATELET COUNT 301 10^3/uL (130-450); RED BLOOD COUNT 3.92 10^6/uL (4.70-6.10); RED CELL DISTRIBUTION WIDTH 13.3 % (12.0-15.0); WHITE BLOOD COUNT 7.4 x10^3/uL (4.8-10.8)
[2018-04-28 16:05] LABS: ALBUMIN 3.5 g/dL (3.2-5.5); ALBUMIN/GLOBULIN RATIO 1.2 (1.0-2.2); BILIRUBIN,TOTAL 0.7 mg/dL (0.2-1.0); CALCIUM 8.8 mg/dL (8.5-10.3); CREATININE 1.3 mg/dL (0.6-1.2); TOTAL PROTEIN 6.4 g/dL (6.7-8.2)
[2018-04-28] MEDS ORDERED: FLUCONAZOLE 100 MG TABLET PO STA (17:35)
[2018-04-28 17:40] VITALS: BP 175/91
== END 2018-04-28 17:51 | disposition home or self-care (01) ==
LOC: ED 14:44
DX: L03.114 Cellulitis of left upper limb (principal); B36.9 Superficial mycosis, unspecified; I10 Essential (primary) hypertension; F17.200 Nicotine dependence, unspecified, uncomplicated; Z98.890 Other specified postprocedural states
CPT/HCPCS: 36415; 80053; 83605; 83690; 85025; 85651; 86140; 87040; 96374; 99283; 99284; A9270; J1170

== ENCOUNTER 2018-05-10 15:48 | Emergency (ER) | payer MEDICARE, MEDICAID ==
[2018-05-10] MEDS ORDERED: HYDROmorphone 1 MG/ML CARPUJECT IVP STA (16:11)
--- NOTE | 2018-05-10 16:13 | ED Physician Documentation ---
PD HPI UPPER EXT INJURY - Stated complaint Stated Complaint: L SHOULDER PX/POST OP 3 WEEKS POST OP - Chief complaint Chief Complaint: Ext Problem - History obtained from History obtained from: Patient, Family - History of Present Illness Location: Other (This is a 57-year-old gentleman who had a failed shoulder replacement of the [facility] on the left which was complicated by osteomyelitis in his main by a right sided PICC line which is about 5 weeks old. He comes in with uncontrolled pain in the left shoulder but also some pinching sensation of the right sided PICC line. He is on vancomycin currently. There is no fever.) Review of Systems Constitutional: denies: Fever, Chills Cardiac: denies: Chest pain / pressure, Palpitations Respiratory: denies: Dyspnea, Cough GI: denies: Abdominal Pain PD PAST MEDICAL HISTORY - Past Medical History Cardiovascular: Congestive heart failure, Hypertension, High cholesterol, Murmur Respiratory: COPD, Shortness of breath Endocrine/Autoimmune: None GI: GERD, Chronic diarrhea, Cholelithiasis, Other : None HEENT: Chronic hearing loss Psych: Depression, Anxiety, Other Musculoskeletal: None Derm: None - Past Surgical History Past Surgical History: Yes General: Cholecystectomy, Colonoscopy, Other Ortho: Hip replacement, Rotator cuff repair - Present Medications Home Medications: Ambulatory Orders Medication Instructions Recorded Confirmed Carvedilol [Coreg] 12.5 mg PO BID 10/28/16 04/27/18 Furosemide [Lasix] 40 mg PO DAILY 10/28/16 04/27/18 Losartan Potassium [Cozaar] 100 mg PO DAILY 10/28/16 04/27/18 Omeprazole [PriLOSEC] 20 mg PO DAILY 10/28/16 04/27/18 Simvastatin [Zocor] 40 mg PO QPM 10/28/16 04/27/18 buPROPion [Wellbutrin Xl] 150 mg PO DAILY 10/28/16 04/27/18 Cholestyramine (with Sugar) 4 gm PO BID 07/17/17 04/27/18 [Cholestyramine Packet] Gabapentin 300 mg PO 04/23/18 HYDROmorphone [Dilaudid] 2 mg PO 04/23/18 HYDROmorphone [Dilaudid] 2 mg PO Q6H PRN #20 tablet 04/23/18 04/27/18 Methocarbamol 600 mg PO DAILY 04/23/18 04/27/18 Ondansetron [Ondansetron Odt] 4 mg PO PRN PRN 04/23/18 04/27/18 Rifampin [Rifadin] 300 mg PO DAILY 04/23/18 04/27/18 Clotrimazole [Clotrimazole AF] 30 gm TP DAILY 10 Days #2 tube 04/27/18 Fluconazole 200 mg PO DAILY #5 tablet 04/28/18 - Allergies Allergies/Adverse Reactions: Allergies Allergy/AdvReac Type Severity Reaction Status Date / Time No Known Drug Allergies Allergy Verified 05/10/18 15:59 - Social History Does the pt smoke?: Yes Smoking Status: Current every day smoker Does the pt drink ETOH?: Yes Does the pt have substance abuse?: No - Immunizations Immunizations are current?: Yes Immunizations: TDAP >10years/unknown - POLST Patient has POLST: No PD ED PE NORMAL - Vitals Vital signs reviewed: Yes - General General: Alert and oriented X 3, No acute distress - Neck Neck: Supple, no meningeal sign, No bony TTP - Cardiac Cardiac: RRR, No murmur - Respiratory Respiratory: No respiratory distress, Clear bilaterally - Back Back: No CVA TTP, No spinal TTP - Derm Derm: Other (There is some tenderness around the right sided PICC line with some diffuse slight swelling of that arm but no cellulitis or purulent drainage of the PICC line itself. There is an anterior staple line on the left shoulder that has a few joselin left in the mid part of the incision but the rest is just approximated with Steri-Strips. There is no significant redness on that side at this juncture.) - Neuro Neuro: Alert and oriented X 3, Normal speech - Psych Psych: Normal mood, Normal affect Results - Vitals Vitals: Vital Signs - 24 hr 05/10/18 15:57 Temperature 36.6 C Heart Rate 124 H Respiratory 22 Rate Blood Pressure 148/81 H O2 Saturation 96 Oxygen O2 Source Room air - Labs Labs: Laboratory Tests 05/10/18 05/10/18 05/10/18 16:25 16:25 16:25 WBC 5.8 RBC 4.77 Hgb 14.6 Hct 43.2 MCV 90.5 MCH 30.6 MCHC 33.8 RDW 13.2 Plt Count 426 MPV 8.1 Neut # (Auto) 3.5 Lymph # (Auto) 1.1 L [place] # (Auto) 0.7 Eos # (Auto) 0.4 Baso # (Auto) 0.1 Absolute Nucleated RBC 0.00 Nucleated RBC % 0.1 ESR Sodium 140 Potassium 3.6 Chloride 99 L Carbon Dioxide 26 Anion Gap 15.0 H BUN 19 Creatinine 1.4 H Estimated GFR (MDRD) 52 L Glucose 136 H Lactic Acid 1.7 Calcium 9.3 Total Bilirubin 0.7 AST 22 ALT 33 Alkaline Phosphatase 101 C-Reactive Protein Total Protein 7.6 Albumin 4.2 Globulin 3.4 Albumin/Globulin Ratio 1.2 Lipase 36 05/10/18 05/10/18 16:25 16:25 WBC RBC Hgb Hct MCV MCH MCHC RDW Plt Count MPV Neut # (Auto) Lymph # (Auto) [place] # (Auto) Eos # (Auto) Baso # (Auto) Absolute Nucleated RBC Nucleated RBC % ESR 19 Sodium Potassium Chloride Carbon Dioxide Anion Gap BUN Creatinine Estimated GFR (MDRD) Glucose Lactic Acid Calcium Total Bilirubin AST ALT Alkaline Phosphatase C-Reactive Protein < 1.0 Total Protein Albumin Globulin Albumin/Globulin Ratio Lipase - Rads (name of study) RUE DVT scan Radiology: Prelim report reviewed (neg fpt DVT) PD MEDICAL DECISION MAKING - ED course ED course: Patient and have several concerns, they are concerned about the PICC line patency and potential for an infection. Also he has uncontrolled pain and because of the power outage they were unable to fill her prescription for oxycodone. His inflammatory markers are the best we have seen in a while and his ultrasound was negative. He was given for oxycodone to go. Departure - Departure Disposition: 01 Home, Self Care Clinical Impression: Postoperative wound cellulitis, Visit for wound check Condition: Good Record reviewed to determine appropriate education?: Yes Comments: Follow-up with your surgeon as scheduled. Return for new or worsening symptoms.
[2018-05-10 16:44] LABS: BASOPHILS # (AUTO) 0.1 10^3/uL (0.0-0.1); BASOPHILS % (AUTO) 0.9 %; EOSINOPHILS # (AUTO) 0.4 10^3/uL (0.0-0.7); EOSINOPHILS % (AUTO) 7.3 %; HGB - HEMOGLOBIN 14.6 g/dL (14.0-18.0); LYMPHOCYTES # (AUTO) 1.1 10^3/uL (1.5-3.5); LYMPHOCYTES % (AUTO) 19.1 %; MEAN CORPUSCULAR HEMOGLOBIN 30.6 pg (27.0-31.0); MEAN CORPUSCULAR HGB CONC 33.8 g/dL (32.0-36.0); MEAN CORPUSCULAR VOLUME 90.5 fL (80.0-94.0); MEAN PLATELET VOLUME 8.1 fL (7.4-11.4); MONOCYTES # (AUTO) 0.7 10^3/uL (0.0-1.0); MONOCYTES % (AUTO) 12.4 %; NEUTROPHILS # (AUTO) 3.5 10^3/uL (1.5-6.6); NEUTROPHILS % (AUTO) 60.3 %; PLT - PLATELET COUNT 426 10^3/uL (130-450); RED BLOOD COUNT 4.77 10^6/uL (4.70-6.10); RED CELL DISTRIBUTION WIDTH 13.2 % (12.0-15.0); WHITE BLOOD COUNT 5.8 x10^3/uL (4.8-10.8)
[2018-05-10 16:49] LABS: ALBUMIN 4.2 g/dL (3.2-5.5); ALBUMIN/GLOBULIN RATIO 1.2 (1.0-2.2); BILIRUBIN,TOTAL 0.7 mg/dL (0.2-1.0); CALCIUM 9.3 mg/dL (8.5-10.3); CREATININE 1.4 mg/dL (0.6-1.2); TOTAL PROTEIN 7.6 g/dL (6.7-8.2)
[2018-05-10] MEDS ORDERED: HYDROmorphone 2 MG/ML VIAL IVP STA (17:51)
[2018-05-10] MEDS ORDERED: oxyCODONE/ACET 5/325 Prepack 4 PO STA (17:51)
[2018-05-10 18:08] VITALS: BP 140/80
--- NOTE | 2018-05-10 18:26 | Ultrasound Report ---
Reason: RUE swelling, PICC Procedure Date: 05/10/2018 Accession Number: [id number] / [id number] Procedure: US - Duplex Ext Veins Right CPT Code: FULL RESULT: EXAM: RIGHT UPPER EXTREMITY VENOUS ULTRASOUND EXAM DATE: 05/10/2018 05:06 PM. CLINICAL HISTORY: Right upper extremity swelling, PICC. COMPARISON: None. TECHNIQUE: Real-time sonographic vascular imaging was performed by the incoming freight clerk through the upper extremity utilizing both color-flow and Doppler spectral analysis. Multiple customer service representative teacher static images were saved for review. FINDINGS: Internal Jugular Vein (IJV): Normal. Subclavian Vein (SCV): Normal. Axillary Vein : Normal. Cephalic Vein (superficial vein): Normal. Basilic Vein (superficial vein): No thrombosis seen. Mid basilic vein not seen. See below. Brachial Vein: No thrombosis seen. Mid brachial vein not seen. See below. Contralateral Side: Subclavian Vein: Normal. Other: Limited evaluation due to plastic cover for the PICC line with gas under cover which limits evaluation of the mid basilic and brachial veins which could not be scanned. IMPRESSION: No evidence for deep vein thrombosis. Limited as above. RADIA
== END 2018-05-10 18:07 | disposition home or self-care (01) ==
LOC: ED 15:48
DX: L03.114 Cellulitis of left upper limb (principal); M96.89 Other intraoperative and postprocedural complications and disorders of the musculoskeletal system; Z97.8 Presence of other specified devices; Y83.8 Other surgical procedures as the cause of abnormal reaction of the patient, or of later complication, without mention of misadventure at the time of the procedure; Z79.899 Other long term (current) drug therapy; I10 Essential (primary) hypertension; Z95.9 Presence of cardiac and vascular implant and graft, unspecified; F17.200 Nicotine dependence, unspecified, uncomplicated; M79.89 Other specified soft tissue disorders
CPT/HCPCS: 36415; 80053; 83605; 83690; 85025; 85651; 86140; 87040; 96374; 96376; 99282; 99283

== ENCOUNTER 2018-07-31 12:45 | Emergency (ER) | payer MEDICARE, MEDICAID ==
--- NOTE | 2018-07-31 13:24 | ED Physician Documentation ---
PD HPI UPPER EXT INJURY - Stated complaint Stated Complaint: LT ARM SWELLING/SP SURGERY - Chief complaint Chief Complaint: Ext Problem - History obtained from History obtained from: Patient, Family - History of Present Illness Location: Other (He is 4 days postop from a left shoulder surgery the [facility] necessitating a right arm PICC line for prophylactic antibiotics. Today he developed bilateral pedal edema and bilateral arm pain and swelling with bruising in both arms. He is short of breath. Denies a cough. No fevers.) Review of Systems Constitutional: reports: Fatigue. denies: Fever, Chills Cardiac: denies: Chest pain / pressure, Palpitations Respiratory: reports: Dyspnea. denies: Cough GI: reports: Abdominal Swelling. denies: Abdominal Pain, Nausea, Vomiting : denies: Dysuria PD PAST MEDICAL HISTORY - Past Medical History Past Medical History: Yes Cardiovascular: Congestive heart failure, Hypertension, High cholesterol Respiratory: Shortness of breath Endocrine/Autoimmune: None GI: GERD, Chronic diarrhea, Cholelithiasis, Other : None HEENT: Chronic hearing loss Psych: Depression, Anxiety, Other Musculoskeletal: None Derm: None - Past Surgical History Past Surgical History: Yes General: Cholecystectomy, Colonoscopy, Other Ortho: Hip replacement, Rotator cuff repair, Other - Present Medications Home Medications: Ambulatory Orders Medication Instructions Recorded Confirmed Carvedilol [Coreg] 12.5 mg PO BID 10/28/16 04/27/18 Furosemide [Lasix] 40 mg PO DAILY 10/28/16 04/27/18 Losartan Potassium [Cozaar] 100 mg PO DAILY 10/28/16 04/27/18 Omeprazole [PriLOSEC] 20 mg PO DAILY 10/28/16 04/27/18 Simvastatin [Zocor] 40 mg PO QPM 10/28/16 04/27/18 buPROPion [Wellbutrin Xl] 150 mg PO DAILY 10/28/16 04/27/18 Gabapentin 300 mg PO 04/23/18 Iv Antibiotic 0 mg 07/31/18 - Allergies Allergies/Adverse Reactions: Allergies Allergy/AdvReac Type Severity Reaction Status Date / Time No Known Drug Allergies Allergy Verified 07/31/18 12:52 - Social History Does the pt smoke?: No Smoking Status: Never smoker Does the pt drink ETOH?: Yes Does the pt have substance abuse?: No - Immunizations Immunizations are current?: Yes Immunizations: TDAP >10years/unknown - POLST Patient has POLST: No PD ED PE NORMAL - Vitals Vital signs reviewed: Yes - General General: Alert and oriented X 3, No acute distress - Neck Neck: Supple, no meningeal sign, No bony TTP - Cardiac Cardiac: RRR, No murmur - Respiratory Respiratory: No respiratory distress, Clear bilaterally - Abdomen Abdomen: Non tender, Other (Bedside ultrasound demonstrates no ascites) - Extremities Extremities: Other (He has edema of all 4 extremities, left upper extremity worse than the right upper extremity and right lower extremity worse than the left lower extremity. He has bruising along the venous system of the right forearm.) - Neuro Neuro: Alert and oriented X 3, Normal speech Results - Vitals Vitals: Vital Signs - 24 hr 07/31/18 12:47 Temperature 36.3 C L Heart Rate 72 Respiratory 18 Rate Blood Pressure 123/83 H O2 Saturation 97 Oxygen O2 Source Room air - Labs Labs: Laboratory Tests 07/31/18 07/31/18 07/31/18 13:55 13:55 13:55 WBC 5.9 RBC 3.48 L Hgb 10.5 L Hct 30.4 L MCV 87.3 MCH 30.2 MCHC 34.6 RDW 14.5 Plt Count 201 MPV 8.9 Neut # (Auto) 3.8 Lymph # (Auto) 1.0 L [place] # (Auto) 0.6 Eos # (Auto) 0.4 Baso # (Auto) 0.0 Absolute Nucleated RBC 0.00 Nucleated RBC % 0.1 Sodium 138 Potassium 3.7 Chloride 102 Carbon Dioxide 27 Anion Gap 9.0 BUN 15 Creatinine 1.3 H Estimated GFR (MDRD) 57 L Glucose 114 H Calcium 8.2 L Total Bilirubin 0.7 AST 23 ALT 22 Alkaline Phosphatase 69 Troponin I < 0.04 B-Natriuretic Peptide Total Protein 6.0 L Albumin 3.4 Globulin 2.6 Albumin/Globulin Ratio 1.3 Lipase 25 07/31/18 13:55 WBC RBC Hgb Hct MCV MCH MCHC RDW Plt Count MPV Neut # (Auto) Lymph # (Auto) [place] # (Auto) Eos # (Auto) Baso # (Auto) Absolute Nucleated RBC Nucleated RBC % Sodium Potassium Chloride Carbon Dioxide Anion Gap BUN Creatinine Estimated GFR (MDRD) Glucose Calcium Total Bilirubin AST ALT Alkaline Phosphatase Troponin I B-Natriuretic Peptide 199 H Total Protein Albumin Globulin Albumin/Globulin Ratio Lipase - Rads (name of study) Upper/Lower DVT Sonos Radiology: EMP read contemporaneously (no DVTs) PD MEDICAL DECISION MAKING - ED course ED course: 57yo male s/p recent surgery with anasarca, but assymetic, but LUE>RUE, and RLE>LLE. But has PICC in RUE. Sonos neg for DVT He was on a diuretic which was skipped perioperatively which is likely causative as well as decreased activity and to the recent surgery. Departure - Departure Disposition: 01 Home, Self Care Clinical Impression: Anasarca Pain in extremity Qualifiers: Extremity pain location: unspecified extremity Qualified Code(s): M79.609 - Pain in unspecified limb Condition: Good Record reviewed to determine appropriate education?: Yes Comments: Continue your water pill, low salt diet. Return if worse. Followup with your physician in 2-3 days for recheck.
[2018-07-31 14:11] LABS: BASOPHILS % (AUTO) 0.5 %; EOSINOPHILS # (AUTO) 0.4 10^3/uL (0.0-0.7); EOSINOPHILS % (AUTO) 7.4 %; HGB - HEMOGLOBIN 10.5 g/dL (14.0-18.0); MEAN CORPUSCULAR HEMOGLOBIN 30.2 pg (27.0-31.0); MEAN CORPUSCULAR HGB CONC 34.6 g/dL (32.0-36.0); MEAN CORPUSCULAR VOLUME 87.3 fL (80.0-94.0); MEAN PLATELET VOLUME 8.9 fL (7.4-11.4); MONOCYTES # (AUTO) 0.6 10^3/uL (0.0-1.0); MONOCYTES % (AUTO) 10.8 %; NEUTROPHILS # (AUTO) 3.8 10^3/uL (1.5-6.6); NEUTROPHILS % (AUTO) 64.3 %; PLT - PLATELET COUNT 201 10^3/uL (130-450); RED BLOOD COUNT 3.48 10^6/uL (4.70-6.10); RED CELL DISTRIBUTION WIDTH 14.5 % (12.0-15.0); WHITE BLOOD COUNT 5.9 x10^3/uL (4.8-10.8)
[2018-07-31 14:25] LABS: ALBUMIN 3.4 g/dL (3.2-5.5); ALBUMIN/GLOBULIN RATIO 1.3 (1.0-2.2); BILIRUBIN,TOTAL 0.7 mg/dL (0.2-1.0); CALCIUM 8.2 mg/dL (8.5-10.3); CREATININE 1.3 mg/dL (0.6-1.2)
[2018-07-31] MEDS ORDERED: HYDROmorphone 1 MG/ML CARPUJECT IVP STA (14:41)
--- NOTE | 2018-07-31 15:54 | Ultrasound Report ---
Reason: leg edema Procedure Date: 07/31/2018 Accession Number: [id number] / [id number] Procedure: US - Duplex Ext Veins Bilateral CPT Code: FULL RESULT: EXAM: BILATERAL LOWER EXTREMITY VENOUS ULTRASOUND EXAM DATE: 07/31/2018 02:21 PM. CLINICAL HISTORY: Leg edema. COMPARISON: DUPLEX EXT VEINS RIGHT 05/10/2018 5:06 PM. TECHNIQUE: Real-time sonographic vascular imaging was performed by the termination clerk through the lower extremities utilizing both color-flow and Doppler spectral analysis. Multiple strategic partnership representative static images were saved for review. FINDINGS: Right: Common Femoral Vein (CFV): Normal. CFV-GSV Junction: Normal. Profunda Femoral Vein (PFV): Normal. Femoral Vein (FV) Prox: Normal. Femoral Vein (FV) Mid: Normal. Femoral Vein (FV) Dist: Normal. Popliteal Vein: Normal. Posterior Tibial Veins: Normal. Peroneal Veins: Normal. Left: Common Femoral Vein (CFV): Normal. CFV-GSV Junction: Normal. Profunda Femoral Vein (PFV): Normal. Femoral Vein (FV) Prox: Normal. Femoral Vein (FV) Mid: Normal. Femoral Vein (FV) Dist: Normal. Popliteal Vein: Normal. Posterior Tibial Veins: Normal. Peroneal Veins: Normal. Other: There is generalized diffuse subcutaneous edema. IMPRESSION: No evidence for deep venous thrombosis bilaterally. RADIA
--- NOTE | 2018-07-31 15:58 | Ultrasound Report ---
Reason: arm edema, post op, picc Procedure Date: 07/31/2018 Accession Number: [id number] / [id number] Procedure: US - Duplex Ext Veins Bilateral CPT Code: FULL RESULT: EXAM: BILATERAL UPPER EXTREMITY VENOUS ULTRASOUND EXAM DATE: 07/31/2018 03:01 PM. CLINICAL HISTORY: Arm edema, post op, picc. COMPARISON: DUPLEX EXT VEINS BILATERAL 07/31/2018 2:21 PM UPPER EXTREMITY LEFT W/O 03/06/2018 11:12 AM. TECHNIQUE: Real-time sonographic vascular imaging was performed by the rouge sifter through the upper extremities utilizing both color-flow and Doppler spectral analysis. Multiple event sales representative static images were saved for review. FINDINGS: Right: Internal Jugular Vein (IJV): Normal. Subclavian Vein (SCV): Normal. Axillary Vein: Normal. Cephalic Vein (superficial vein): Normal. Basilic Vein (superficial vein): Normal. Brachial Vein: Normal. Left: Internal Jugular Vein (IJV): Normal. Subclavian Vein (SCV): Appears patent. Could not compress vessel or augment due to pain and recent surgery. Axillary Vein: Patent without filling defect. Could not compress. Cephalic Vein (superficial vein): Patent although could not compress. Basilic Vein (superficial vein): Patent although could not compress. Brachial Vein: Patent although could not compress. Other: None. IMPRESSION: No evidence of deep venous thrombosis. Unable to compress the veins of the left upper extremity secondary to recent surgery and pain RADIA
[2018-07-31 19:48] VITALS: BP 162/104
== END 2018-07-31 16:35 | disposition home or self-care (01) ==
LOC: ED 12:45
DX: R60.1 Generalized edema (principal); M79.601 Pain in right arm; M79.602 Pain in left arm; Z98.890 Other specified postprocedural states; I11.0 Hypertensive heart disease with heart failure; I50.9 Heart failure, unspecified
CPT/HCPCS: 36415; 80053; 83690; 83880; 84484; 85025; 93970; 96374; 99283; J1170

== ENCOUNTER 2018-08-03 12:45 | Emergency (ER) | payer MEDICARE, MEDICAID ==
[2018-08-03] MEDS ORDERED: FUROSEMIDE 40 MG/4 ML VIAL IVP STA (15:28)
[2018-08-03] MEDS ORDERED: HYDROmorphone 2 MG/ML VIAL IVP STA (15:28)
--- NOTE | 2018-08-03 15:30 | ED Physician Documentation ---
History of Present Illness - Stated complaint Stated Complaint: PIC LINE BLEEDING - Chief complaint Chief Complaint: General - History obtained from History obtained from: Patient, Family - History of Present Illness Timing: Other (He had a left shoulder reconstruction recently, was seen by me a few days ago for pedal and upper extremity edema. Dopplers of all 4 extremities were negative and his renal function was fine. He still has shortness of breath, and now his PICC line was bleeding today.) Review of Systems Ten Systems: 10 systems reviewed and negative Constitutional: denies: Fever, Chills Cardiac: denies: Chest pain / pressure, Palpitations Respiratory: reports: Dyspnea. denies: Cough PD PAST MEDICAL HISTORY - Past Medical History Cardiovascular: Congestive heart failure, Hypertension, High cholesterol Respiratory: Shortness of breath Endocrine/Autoimmune: None GI: GERD, Chronic diarrhea, Cholelithiasis, Other : None HEENT: Chronic hearing loss Psych: Depression, Anxiety, Other Musculoskeletal: None Derm: None - Past Surgical History Past Surgical History: Yes General: Cholecystectomy, Colonoscopy, Other Ortho: Hip replacement, Rotator cuff repair, Other - Present Medications Home Medications: Ambulatory Orders Medication Instructions Recorded Confirmed Carvedilol [Coreg] 12.5 mg PO BID 10/28/16 08/01/18 Furosemide [Lasix] 40 mg PO DAILY 10/28/16 08/01/18 Losartan Potassium [Cozaar] 100 mg PO DAILY 10/28/16 08/01/18 Omeprazole [PriLOSEC] 20 mg PO DAILY 10/28/16 08/01/18 Simvastatin [Zocor] 40 mg PO QPM 10/28/16 08/01/18 buPROPion [Wellbutrin Xl] 150 mg PO DAILY 10/28/16 08/01/18 RX: Gabapentin 300 mg PO DAILY 04/23/18 08/01/18 Iv Antibiotic 0 mg 07/31/18 - Allergies Allergies/Adverse Reactions: Allergies Allergy/AdvReac Type Severity Reaction Status Date / Time chlorhexidine AdvReac Rash Verified 08/03/18 13:00 - Social History Does the pt smoke?: No Smoking Status: Never smoker Does the pt drink ETOH?: Yes Does the pt have substance abuse?: No - Immunizations Immunizations are current?: Yes Immunizations: TDAP >10years/unknown - POLST Patient has POLST: No PD ED PE NORMAL - Vitals Vital signs reviewed: Yes - General General: Alert and oriented X 3, No acute distress - Neck Neck: Supple, no meningeal sign, No bony TTP - Cardiac Cardiac: RRR, No murmur - Respiratory Respiratory: Other (Diminished at the left base) - Extremities Extremities: Other (The edema of all 4 extremities seems to be improved from the other day, still bigger on the right lower extremity than the left, and more on the left upper extremity than the right. There is just a drop of blood under the Tegaderm for the PICC line. And I asked the nurse to clean this up and replace it.) - Neuro Neuro: Alert and oriented X 3, Normal speech Results - Vitals Vitals: Vital Signs - 24 hr 08/03/18 12:58 Temperature 36.3 C L Heart Rate 65 Respiratory 22 Rate Blood Pressure 160/95 H O2 Saturation 98 Oxygen O2 Source Room air - Rads (name of study) 2v chewst Radiology: EMP read contemporaneously (Left basilar atelectasis without other acute disease.) PD MEDICAL DECISION MAKING - ED course ED course: His anasarca looks improved from the other day but he was still bothered by it so he was given a dose of IV Lasix. He was concerned about CHF, clinically there is no evidence of this, nor is there on chest x-ray. Departure - Departure Disposition: 01 Home, Self Care Clinical Impression: Anasarca, Bleeding from PICC line Condition: Good Record reviewed to determine appropriate education?: Yes Comments: Continue current medications. Follow-up with your physician early next week. Also for blood pressure check, it was high today. There is no evidence of heart failure.
--- NOTE | 2018-08-03 16:58 | XRAY Report ---
Reason: dyspnea Procedure Date: 08/03/2018 Accession Number: [id number] / [id number] Procedure: XR - Chest 2 View X-Ray CPT Code: 74947 FULL RESULT: EXAM: CHEST RADIOGRAPHY EXAM DATE: 08/03/2018 04:43 PM. CLINICAL HISTORY: Dyspnea. COMPARISON: CHEST 1 VIEW 04/27/2018 3:51 PM. TECHNIQUE: 2 views. FINDINGS: Lungs/Pleura: Chronic elevation of left hemidiaphragm with atelectasis or scarring in left base. Otherwise clear. No effusion or pneumothorax. Mediastinum: Mild cardiomegaly, probably unchanged. Upper lobe vessels not distended. Right PICC tip in lower SVC about 3.5 cm below the level of shashi. Other: Degenerative and other chronic findings. IMPRESSION: Left basilar atelectasis or scarring. Otherwise unremarkable. RADIA
[2018-08-03 17:40] VITALS: BP 150/96
== END 2018-08-03 17:40 | disposition home or self-care (01) ==
LOC: ED 12:45
DX: R60.1 Generalized edema (principal); T82.838A Hemorrhage due to vascular prosthetic devices, implants and grafts, initial encounter; I11.0 Hypertensive heart disease with heart failure; I50.9 Heart failure, unspecified; E78.00 Pure hypercholesterolemia, unspecified; Z96.649 Presence of unspecified artificial hip joint
CPT/HCPCS: 71046; 96374; 99283; 99284; J1170

== ENCOUNTER 2020-07-21 07:49 | Outpatient (CLI) | payer MEDICARE, MEDICAID ==
[2020-07-21 12:01] LABS: BASOPHILS # (AUTO) 0.1 10^3/uL (0.0-0.1); BASOPHILS % (AUTO) 1.2 %; EOSINOPHILS # (AUTO) 0.2 10^3/uL (0.0-0.7); EOSINOPHILS % (AUTO) 2.3 %; HCT - HEMATOCRIT 48.7 % (42.0-52.0); HGB - HEMOGLOBIN 15.9 g/dL (14.0-18.0); LYMPHOCYTES # (AUTO) 1.4 10^3/uL (1.5-3.5); LYMPHOCYTES % (AUTO) 20.2 %; MEAN CORPUSCULAR HEMOGLOBIN 31.8 pg (27.0-31.0); MEAN CORPUSCULAR HGB CONC 32.6 g/dL (32.0-36.0); MEAN CORPUSCULAR VOLUME 97.4 fL (80.0-94.0); MEAN PLATELET VOLUME 10.5 fL (7.4-11.4); MONOCYTES # (AUTO) 0.8 10^3/uL (0.0-1.0); MONOCYTES % (AUTO) 11.4 %; NEUTROPHILS # (AUTO) 4.4 10^3/uL (1.5-6.6); NEUTROPHILS % (AUTO) 64.6 %; PLT - PLATELET COUNT 292 10^3/uL (130-450); RED CELL DISTRIBUTION WIDTH 13.6 % (12.0-15.0); WHITE BLOOD COUNT 6.9 x10^3/uL (4.8-10.8)
[2020-07-21 12:09] LABS: CREATININE,URINE 168.6 mg/dL; MICROALBUM/CREATININE RATIO,UR 5.9 ug/mg (<30.0)
[2020-07-21 12:23] LABS: ESTIMATED AVERAGE GLUCOSE 120 mg/dL (70-100); HEMOGLOBIN A1c% 5.8 % (4.27-6.07)
[2020-07-21 12:48] LABS: ALBUMIN/GLOBULIN RATIO 1.7 (1.0-2.2); ALKALINE PHOSPHATASE 75 IU/L (42-121); ALT ALANINE AMINOTRANSFERASE 35 IU/L (10-60); AST ASPARTATE AMINOTRANSFERASE 25 IU/L (10-42); BILIRUBIN,TOTAL 0.4 mg/dL (0.2-1.0); BUN - BLOOD UREA NITROGEN 13 mg/dL (6-20); CALCIUM 9.5 mg/dL (8.5-10.3); CARBON DIOXIDE - CO2 25 mmol/L (21-32); CHLORIDE 106 mmol/L (101-111); CHOL/HDL RATIO 4.2 (<5.0); CHOLESTEROL 226 mg/dL; CREATININE 1.1 mg/dL (0.6-1.2); GFR - MDRD 68 (>89); GLUCOSE 115 mg/dL (70-100); HDL CHOLESTEROL 54 mg/dL; LDL CHOLESTEROL,CALCULATED 146 mg/dL; LDL/HDL RATIO 2.7 (<3.6); POTASSIUM 4.5 mmol/L (3.5-5.0); SODIUM 142 mmol/L (135-145); TOTAL PROTEIN 6.4 g/dL (6.7-8.2); TRIGLYCERIDES 132 mg/dL; VLDL CHOLESTEROL 26 mg/dL
[2020-07-21 12:50] LABS: THYROID STIMULATING HORMONE 1.17 uIU/mL (0.34-5.60)
== END 2020-07-21 23:59 | disposition home or self-care (01) ==
LOC: LAB.WCP 07:49
PROVIDERS: ATTEND Family Medicine
DX: E11.9 Type 2 diabetes mellitus without complications (principal); Z12.5 Encounter for screening for malignant neoplasm of prostate
CPT/HCPCS: 36415; 80053; 80061; 82043; 82570; 83036; 84443; 85025; G0103; 83721; 84153

== ENCOUNTER 2021-06-12 14:03 | Outpatient (CLI) | payer MEDICARE, MEDICAID ==
--- NOTE | 2021-06-12 18:09 | XRAY Report ---
PROCEDURE: Knee 3 View RT INDICATIONS: RIGHT KNEE PAIN TECHNIQUE: 3 views of the right knee(s) were acquired. COMPARISON: None. FINDINGS: Bones: No fractures or dislocations. No suspicious bony lesions. Mild degenerative change. Small os teophytes. Mild to moderate medial compartment joint space loss. Soft tissues: No joint effusion. No suspicious soft tissue calcifications. IMPRESSION: Degenerative arthritis. No evidence acute bony abnormality of the right knee. If clinical suspicion and/or symptoms persist, further assessment with repeat plain films or advanced imaging (e.g., CT, MRI, or bone scan) may be helpful for further assessment. Reviewed by: Reymundo Mosley MD on 06/12/2021 6:08 PM PST Approved by: Reymundo Mosley MD on 06/12/2021 6:08 PM PST Station ID: [id number]
== END 2021-06-12 23:59 | disposition home or self-care (01) ==
LOC: DI.N 14:03
PROVIDERS: ATTEND Physician Assistant
DX: M17.11 Unilateral primary osteoarthritis, right knee (principal)

== ENCOUNTER 2021-09-07 08:00 | Outpatient (CLI) | payer MEDICARE, MEDICAID ==
--- NOTE | 2021-09-07 11:39 | XRAY Report ---
PROCEDURE: Ribs w/PA Chest RT INDICATIONS: R SIDE RIB PX TECHNIQUE: 3 views of the right ribs were acquired, along with a single view chest. COMPARISON: 08/16/2017 FINDINGS: Surgical changes and devices: None. Bones and chest wall: No fractures or dislocations. No suspicious bony lesions. Overlying soft tis sues appear unremarkable. Degenerative left glenohumeral changes noted with remodeling of the proxim al humerus Lungs and pleura: No pleural effusions or pneumothorax. Lungs appear clear. Mediastinum: Mediastinal contours appear normal. Heart size is normal. Atherosclerotic vascular ca lcification noted in the aortic arch. IMPRESSION: No acute cardiopulmonary findings No evidence of rib fracture or pneumothorax. Reviewed by: Jesus Bergman MD on 09/07/2021 10:37 AM LUÍS Approved by: Jesus Bergman MD on 09/07/2021 10:37 AM LUÍS Station ID: [id number]
== END 2021-09-07 23:59 | disposition home or self-care (01) ==
LOC: DI.N 08:00
PROVIDERS: ATTEND Family Medicine
DX: R07.81 Pleurodynia (principal)

== ENCOUNTER 2021-09-22 08:31 | Outpatient (CLI) | payer MEDICARE, MEDICAID ==
[2021-09-22 11:50] LABS: BASOPHILS # (AUTO) 0.1 10^3/uL (0.0-0.1); BASOPHILS % (AUTO) 0.9 %; EOSINOPHILS # (AUTO) 0.3 10^3/uL (0.0-0.7); HCT - HEMATOCRIT 48.7 % (42.0-52.0); HGB - HEMOGLOBIN 16.4 g/dL (14.0-18.0); LYMPHOCYTES # (AUTO) 1.2 10^3/uL (1.5-3.5); LYMPHOCYTES % (AUTO) 15.3 %; MEAN CORPUSCULAR HEMOGLOBIN 32.4 pg (27.0-31.0); MEAN CORPUSCULAR HGB CONC 33.7 g/dL (32.0-36.0); MEAN CORPUSCULAR VOLUME 96.2 fL (80.0-94.0); MEAN PLATELET VOLUME 10.7 fL (7.4-11.4); MONOCYTES # (AUTO) 0.7 10^3/uL (0.0-1.0); MONOCYTES % (AUTO) 9.1 %; NEUTROPHILS # (AUTO) 5.6 10^3/uL (1.5-6.6); NEUTROPHILS % (AUTO) 70.1 %; PLT - PLATELET COUNT 307 10^3/uL (130-450); RED BLOOD COUNT 5.06 10^6/uL (4.70-6.10); RED CELL DISTRIBUTION WIDTH 13.4 % (12.0-15.0); WHITE BLOOD COUNT 7.9 x10^3/uL (4.8-10.8)
[2021-09-22 12:17] LABS: ALBUMIN/GLOBULIN RATIO 1.3 (1.0-2.2); ALKALINE PHOSPHATASE 83 IU/L (42-121); ALT ALANINE AMINOTRANSFERASE 25 IU/L (10-60); AST ASPARTATE AMINOTRANSFERASE 22 IU/L (10-42); BILIRUBIN,TOTAL 0.9 mg/dL (0.2-1.0); BUN - BLOOD UREA NITROGEN 13 mg/dL (6-20); CARBON DIOXIDE - CO2 25 mmol/L (21-32); CHLORIDE 101 mmol/L (101-111); CHOL/HDL RATIO 3.4 (<5.0); CHOLESTEROL 218 mg/dL; CREATININE 1.1 mg/dL (0.6-1.2); GFR - MDRD 68 (>89); GLUCOSE 134 mg/dL (70-100); HDL CHOLESTEROL 65 mg/dL; LDL CHOLESTEROL,CALCULATED 124 mg/dL; LDL/HDL RATIO 1.9 (<3.6); POTASSIUM 4.4 mmol/L (3.5-5.0); SODIUM 136 mmol/L (135-145); TOTAL PROTEIN 7.1 g/dL (6.7-8.2); TRIGLYCERIDES 146 mg/dL; VLDL CHOLESTEROL 29 mg/dL
[2021-09-22 12:31] LABS: THYROID STIMULATING HORMONE 1.38 uIU/mL (0.34-5.60)
[2021-09-22 12:56] LABS: ESTIMATED AVERAGE GLUCOSE 120 mg/dL (70-100); HEMOGLOBIN A1c% 5.8 % (4.27-6.07)
== END 2021-09-22 08:32 | disposition home or self-care (01) ==
LOC: LAB.N 08:31
PROVIDERS: ATTEND Nurse Practitioner Family
DX: I10 Essential (primary) hypertension (principal); E78.5 Hyperlipidemia, unspecified; E11.9 Type 2 diabetes mellitus without complications
CPT/HCPCS: 36415; 80053; 80061; 83036; 83721; 84443; 85025

== ENCOUNTER 2022-04-11 10:11 | Outpatient (CLI) | payer MEDICARE, MEDICAID ==
[2022-04-11 12:45] LABS: CALCIUM 8.7 mg/dL (8.5-10.3); POTASSIUM 4.2 mmol/L (3.5-5.0)
[2022-04-11 13:03] LABS: ESTIMATED AVERAGE GLUCOSE 131 mg/dL (70-100); HEMOGLOBIN A1c% 6.2 % (4.27-6.07)
== END 2022-04-11 10:12 | disposition home or self-care (01) ==
LOC: LAB.N 10:11
PROVIDERS: ATTEND Physician Assistant Medical
DX: E11.9 Type 2 diabetes mellitus without complications (principal); Z12.5 Encounter for screening for malignant neoplasm of prostate
CPT/HCPCS: 36415; 80048; 83036; G0103; 84153

== ENCOUNTER 2022-06-18 01:33 | Outpatient (CLI) | payer MEDICARE, MEDICAID | END 2022-06-18 01:34 | disposition short-term general hospital (02) | LOC: EMS 01:33 | DX: I47.1 Supraventricular tachycardia (principal); I95.9 Hypotension, unspecified; R06.00 Dyspnea, unspecified; R06.02 Shortness of breath; R53.1 Weakness; R42 Dizziness and giddiness; R61 Generalized hyperhidrosis; R11.0 Nausea | CPT/HCPCS: A0425; A0427 ==

== ENCOUNTER 2022-07-15 07:24 | Outpatient (CLI) | payer MEDICARE, MEDICAID ==
[2022-07-15 12:25] LABS: ALBUMIN 3.9 g/dL (3.2-5.5); ALBUMIN/GLOBULIN RATIO 1.3 (1.0-2.2); BILIRUBIN,TOTAL 0.7 mg/dL (0.2-1.0); CALCIUM 9.2 mg/dL (8.5-10.3); CREATININE 1.1 mg/dL (0.6-1.2); TOTAL PROTEIN 6.9 g/dL (6.7-8.2)
== END 2022-07-15 07:25 | disposition home or self-care (01) ==
LOC: LAB.N 07:24
PROVIDERS: ATTEND Physician Assistant Medical
DX: E78.2 Mixed hyperlipidemia (principal); I10 Essential (primary) hypertension; I47.1 Supraventricular tachycardia
CPT/HCPCS: 36415; 80053; 83704; 83735; 84443

== ENCOUNTER 2022-09-22 08:35 | Outpatient (CLI) | payer MEDICARE, MEDICAID ==
[2022-09-22 12:37] LABS: ESTIMATED AVERAGE GLUCOSE 131 mg/dL (70-100); HEMOGLOBIN A1c% 6.2 % (4.27-6.07)
[2022-09-22 13:59] LABS: CHOL/HDL RATIO 2.3 (<5.0); CHOLESTEROL 162 mg/dL; HDL CHOLESTEROL 69 mg/dL; LDL CHOLESTEROL,CALCULATED 55 mg/dL; LDL/HDL RATIO 0.8 (<3.6); TRIGLYCERIDES 188 mg/dL; VLDL CHOLESTEROL 38 mg/dL
== END 2022-09-22 08:36 | disposition home or self-care (01) ==
LOC: LAB.N 08:35
PROVIDERS: ATTEND Specialist
DX: E78.2 Mixed hyperlipidemia (principal); R73.9 Hyperglycemia, unspecified
CPT/HCPCS: 36415; 80061; 83036; 83721

== ENCOUNTER 2022-10-25 13:32 | Outpatient (CLI) | payer MEDICARE, MEDICAID ==
--- NOTE | 2022-10-25 18:14 | CT Report ---
PROCEDURE: Low Dose Lung Cancer Screen INDICATIONS: MODERATE CIGERATTE SMOKER TECHNIQUE: A CT scan of the chest was performed. Intravenous contrast media was not administered. Images were re corded and evaluated at appropriate window settings. Reformats: axial MIP of the chest, coronal and s agittal. For radiation dose reduction, the following was used: automated exposure control, adjustment of mA and/or kV according to patient size. COMPARISON: Chest radiograph dated 09/07/2021 FINDINGS: Image quality: Diagnostic. Patient motion artifact Prior cancer history: Unsure. Lungs and pleura: No pleural effusions. No pneumothorax. A few sub-5 mm pleural-based and subpleural nodules are noted. Most are calcified. Larger, calcified pulmonary nodule visualized along the super ior margin of the left major fissure measuring 6 mm (image 82/series 4). No suspicious pulmonary nodu les which require follow up. Patchy bibasilar opacities. Mild dependent ground glass opacities. No se ptal thickening or nodularity. No suspicious consolidation. Mediastinum: Heart size is normal. No pericardial effusion. No large vessel abnormality. No hilar peggy nopathy by size criteria. A few prominent mediastinal lymph nodes likely reactive in etiology. Athero sclerotic calcifications of coronary arteries. Chest wall and lower neck: Thyroid is unremarkable. No axillary or supraclavicular adenopathy by size . Bones: No aggressive osseous abnormality. Upper Abdomen: No gross abnormalities. Upper abdominal structures limited by motion artifact and scan palak characteristics. IMPRESSION: Lung RAD: 2 - Benign. Recommendation: Continue annual screening in 12 Months with LDCT Non-Lung Significant Findings: Coronary Arterial Calcification - Moderate or Severe. Consider cardiol ogy referral. Reviewed by: Louie Pascual MD on 10/25/2022 6:12 PM PDT Approved by: Louie Pascual MD on 10/25/2022 6:12 PM PDT Station ID: [id number]
== END 2022-10-25 13:33 | disposition home or self-care (01) ==
LOC: DI 13:32
PROVIDERS: ATTEND Physician Assistant Medical
DX: Z12.2 Encounter for screening for malignant neoplasm of respiratory organs (principal); F17.210 Nicotine dependence, cigarettes, uncomplicated; I25.10 Atherosclerotic heart disease of native coronary artery without angina pectoris

== ENCOUNTER 2023-01-25 21:36 | Outpatient (CLI) | payer MEDICARE, MEDICAID | END 2023-01-25 23:59 | disposition critical access hospital (66) | LOC: EMS 21:36 | DX: R11.2 Nausea with vomiting, unspecified (principal); R53.81 Other malaise; R20.2 Paresthesia of skin; R53.83 Other fatigue | CPT/HCPCS: A0425; A0429 ==

== ENCOUNTER 2023-01-25 22:00 | Emergency (ER) | payer MEDICARE, MEDICAID ==
[2023-01-25 22:15] LABS: BASOPHILS # (AUTO) 0.1 10^3/uL (0.0-0.1); EOSINOPHILS # (AUTO) 0.1 10^3/uL (0.0-0.7); HCT - HEMATOCRIT 41.2 % (42.0-52.0); LYMPHOCYTES # (AUTO) 1.4 10^3/uL (1.5-3.5); LYMPHOCYTES % (AUTO) 22.2 %; MEAN CORPUSCULAR HEMOGLOBIN 32.7 pg (27.0-31.0); MEAN CORPUSCULAR VOLUME 96.3 fL (80.0-94.0); MEAN PLATELET VOLUME 9.7 fL (7.4-11.4); MONOCYTES # (AUTO) 0.5 10^3/uL (0.0-1.0); MONOCYTES % (AUTO) 7.8 %; NEUTROPHILS # (AUTO) 4.2 10^3/uL (1.5-6.6); NEUTROPHILS % (AUTO) 67.5 %; PLT - PLATELET COUNT 242 10^3/uL (130-450); RED BLOOD COUNT 4.28 10^6/uL (4.70-6.10); RED CELL DISTRIBUTION WIDTH 13.5 % (12.0-15.0); WHITE BLOOD COUNT 6.2 x10^3/uL (4.8-10.8)
[2023-01-25 22:27] LABS: ALBUMIN 3.5 g/dL (3.2-5.5); ALBUMIN/GLOBULIN RATIO 1.3 (1.0-2.2); BILIRUBIN,TOTAL 0.5 mg/dL (0.2-1.0); CALCIUM 7.9 mg/dL (8.5-10.3); ETOH - ETHANOL 242.6 mg/dL; POTASSIUM 3.4 mmol/L (3.5-5.0); TOTAL PROTEIN 6.3 g/dL (6.7-8.2)
[2023-01-25] MEDS ORDERED: CALCIUM GLUCONATE IN NS 0.9% 2,000 MG/100 ML BAG IV STA (22:48)
[2023-01-25] MEDS ORDERED: POTASSIUM CHLOR 10 MEQ/100 ML 10 MEQ/100 ML BAG IV STA (22:49)
[2023-01-25] MEDS ORDERED: SODIUM CHLORIDE 0.9% 1,000 ML IV STA (22:49)
--- NOTE | 2023-01-25 23:04 | ED Physician Documentation ---
History of Present Illness - Stated complaint Stated Complaint: ETOH/FATIGUE - Chief complaint Chief Complaint: General - History obtained from History obtained from: Patient, EMS - Additonal information Additional information: 62yM with pmh htn, hld, p/w CC of lip and face tingling/numbness and fecal/urinary incontinence while sleeping. patient denies drinking alcohol except for a "beer" this afternoon but then amends it to say it was an "earthquake" alcoholic beverage. patient is clinically intoxicated. denies cp, soa, n/v abd pain, urinary sx, fever or back pain. PD PAST MEDICAL HISTORY - Past Medical History Cardiovascular: Congestive heart failure, Hypertension, High cholesterol Respiratory: Shortness of breath Endocrine/Autoimmune: None GI: GERD, Chronic diarrhea, Cholelithiasis, Other : None HEENT: Chronic hearing loss Psych: Depression, Anxiety, Other Musculoskeletal: None Derm: None - Past Surgical History Past Surgical History: Yes General: Cholecystectomy, Colonoscopy, Other Ortho: Hip replacement, Rotator cuff repair, Other - Present Medications Home Medications: Ambulatory Orders Medication Instructions Recorded Confirmed Furosemide [Lasix] 40 mg PO DAILY 10/28/16 08/01/18 Losartan Potassium [Cozaar] 100 mg PO DAILY 10/28/16 08/01/18 Omeprazole [PriLOSEC] 20 mg PO DAILY 10/28/16 08/01/18 Simvastatin [Zocor] 40 mg PO QPM 10/28/16 08/01/18 buPROPion [Wellbutrin Xl] 150 mg PO DAILY 10/28/16 08/01/18 carvediloL [Coreg] 12.5 mg PO BID 10/28/16 08/01/18 Gabapentin 300 mg PO DAILY 04/23/18 08/01/18 Iv Antibiotic 0 mg 07/31/18 - Allergies Allergies/Adverse Reactions: Allergies Allergy/AdvReac Type Severity Reaction Status Date / Time chlorhexidine AdvReac Rash Verified 08/03/18 13:00 - Social History Does the pt smoke?: No Smoking Status: Never smoker Does the pt drink ETOH?: Yes Does the pt have substance abuse?: No - Immunizations Immunizations are current?: Yes Immunizations: TDAP >10years/unknown - POLST Patient has POLST: No PD ED PE NORMAL - Vitals Vital signs reviewed: Yes - General General: Alert and oriented X 3, No acute distress, Well developed/nourished, Other (clinically intoxicated) - HEENT HEENT: Atraumatic, PERRL, EOMI, Moist mucous membranes, Pharynx benign - Neck Neck: Supple, no meningeal sign - Cardiac Cardiac: RRR - Respiratory Respiratory: No respiratory distress, Clear bilaterally - Abdomen Abdomen: Non tender, Other (abdomen moderately distended) - Back Back: No CVA TTP - Derm Derm: Normal color, Warm and dry - Extremities Extremities: No deformity - Neuro Neuro: Alert and oriented X 3, human capital manager 2-12 intact, No motor deficit, No sensory deficit - Psych Psych: Other (clinically intoxicated) Results - Vitals Vitals: Vital Signs - 24 hr 01/25/23 01/25/23 01/26/23 22:23 23:14 01:38 Temperature 36.5 C 37 C Heart Rate 79 77 72 Respiratory 17 20 17 Rate Blood Pressure 132/83 H 92/60 112/74 O2 Saturation 97 96 98 01/26/23 04:00 Temperature 36.4 C L Heart Rate 85 Respiratory 20 Rate Blood Pressure 121/82 H O2 Saturation 100 Oxygen O2 Source Room air - EKG (time done) 2256 EKG releavant findings:: EKG personally interpreted by author of this note. Relevant findings are: Rate: Rate (enter#) (78) Rhythm: NSR Intervals: LBBB Compare to prior EKG: Other (old ekg with similar pattern 04/27/18 interpreted as LAFB) - Labs Labs: Laboratory Tests 01/25/23 01/25/23 01/25/23 22:09 22:09 23:10 WBC 6.2 RBC 4.28 L Hgb 14.0 Hct 41.2 L MCV 96.3 H MCH 32.7 H MCHC 34.0 RDW 13.5 Plt Count 242 MPV 9.7 Neut # (Auto) 4.2 Lymph # (Auto) 1.4 L [place] # (Auto) 0.5 Eos # (Auto) 0.1 Baso # (Auto) 0.1 Absolute Nucleated RBC 0.00 Nucleated RBC % 0.0 Sodium 140 Potassium 3.4 L Chloride 103 Carbon Dioxide 25 Anion Gap 12.0 BUN 13 Creatinine 1.0 Estimated GFR (MDRD) 75 L Glucose 144 H Calcium 7.9 L Total Bilirubin 0.5 AST 87 H ALT 56 Alkaline Phosphatase 73 Total Protein 6.3 L Albumin 3.5 Globulin 2.8 Albumin/Globulin Ratio 1.3 Lipase 34 Nasal Adenovirus (PCR) NOT DETECTED Nasal B. parapertussis DNA (PCR) NOT DETECTED Nasal Coronavir 229E PCR NOT DETECTED Nasal Coronavir HKU1 PCR NOT DETECTED Nasal Coronavir NL63 PCR NOT DETECTED Nasal Coronavir OC43 PCR NOT DETECTED Nasal Enterovir/Rhinovir PCR NOT DETECTED Nasal Influenza B PCR NOT DETECTED Nasal Influenza A PCR NOT DETECTED Nasal Parainfluen 1 PCR NOT DETECTED Nasal Parainfluen 2 PCR NOT DETECTED Nasal Parainfluen 3 PCR NOT DETECTED Nasal Parainfluen 4 PCR NOT DETECTED Nasal RSV (PCR) NOT DETECTED Nasal B.pertussis DNA PCR NOT DETECTED Nasal C.pneumoniae (PCR) NOT DETECTED Blayne Human Metapneumo PCR NOT DETECTED Nasal M.pneumoniae (PCR) NOT DETECTED Nasal SARS-CoV-2 (PCR) NOT DETECTED Urine Opiates Screen Ur Oxycodone Screen Urine Methadone Screen Ur Propoxyphene Screen Ur Barbiturates Screen Ur Tricyclics Screen Ur Phencyclidine Scrn Ur Amphetamine Screen U Methamphetamines Scrn U Benzodiazepines Scrn Urine Cocaine Screen U Cannabinoids Screen Ethyl Alcohol 242.6 01/26/23 03:40 WBC RBC Hgb Hct MCV MCH MCHC RDW Plt Count MPV Neut # (Auto) Lymph # (Auto) [place] # (Auto) Eos # (Auto) Baso # (Auto) Absolute Nucleated RBC Nucleated RBC % Sodium Potassium Chloride Carbon Dioxide Anion Gap BUN Creatinine Estimated GFR (MDRD) Glucose Calcium Total Bilirubin AST ALT Alkaline Phosphatase Total Protein Albumin Globulin Albumin/Globulin Ratio Lipase Nasal Adenovirus (PCR) Nasal B. parapertussis DNA (PCR) Nasal Coronavir 229E PCR Nasal Coronavir HKU1 PCR Nasal Coronavir NL63 PCR Nasal Coronavir OC43 PCR Nasal Enterovir/Rhinovir PCR Nasal Influenza B PCR Nasal Influenza A PCR Nasal Parainfluen 1 PCR Nasal Parainfluen 2 PCR Nasal Parainfluen 3 PCR Nasal Parainfluen 4 PCR Nasal RSV (PCR) Nasal B.pertussis DNA PCR Nasal C.pneumoniae (PCR) Bl[place]ne Human Metapneumo PCR Nasal M.pneumoniae (PCR) Nasal SARS-CoV-2 (PCR) Urine Opiates Screen NEGATIVE Ur Oxycodone Screen NEGATIVE Urine Methadone Screen NEGATIVE Ur Propoxyphene Screen NEGATIVE Ur Barbiturates Screen NEGATIVE Ur Tricyclics Screen NEGATIVE Ur Phencyclidine Scrn NEGATIVE Ur Amphetamine Screen NEGATIVE U Methamphetamines Scrn NEGATIVE U Benzodiazepines Scrn NEGATIVE Urine Cocaine Screen NEGATIVE U Cannabinoids Screen NEGATIVE Ethyl Alcohol PD Medical Decision Making - ED course ED course: 62yM with pmh htn, hld presents to the ED clinically intoxicated, stating he has been under stress due to returning from being in the hospital. also with urinary/fecal incontinence, lip tingling and multiple other nonspecific complaints. Labwork appears benign, alcohol level >200. plan to monitor for sobriety. his ekg does show LBBB and it looks like similar pattern to prior in 2018. I advised him of this and to f/u with pcp regarding these findings. cxr No evidence of cardiopulmonary disease per my interpretation and that of outside radiologist. Patient ambulatory to bathroom without difficulty. clinically sober as of 6am. Return precautions given. Advised him to abstain from alcohol. He will follow-up with his primary care provider. Departure - Departure Disposition: 01 Home, Self Care Clinical Impression: Alcohol intoxication, Hypocalcemia, Hypokalemia Condition: Stable Instructions: ED Alcohol Intoxication, Hypokalemia Dc, Hypocalcemia Dc Comments: You were seen in the emergency department for alcohol intoxication and medical evaluation. Your potassium and calcium levels were a little low so supplements were provided. Please follow-up with your primary care provider for recheck of your labs and r eturn to the emergency department if you have any new or worsening symptoms or other concerns. Forms: PCP List
--- NOTE | 2023-01-25 23:26 | XRAY Report ---
PROCEDURE: Chest 1 View X-Ray INDICATIONS: Chest Pain TECHNIQUE: One view of the chest was acquired. COMPARISON: 09/07/2021. FINDINGS: Surgical changes and devices: None. Lungs and pleura: No pleural effusions or pneumothorax. There are low lung volumes. No acute consoli dation. Mediastinum: Mediastinal contours appear unchanged. Heart size is normal. Bones and chest wall: No suspicious bony lesions. Overlying soft tissues appear unremarkable. IMPRESSION: 1. No acute cardiopulmonary disease. Reviewed by: Catalino Williamson MD on 01/25/2023 11:25 PM PDT Approved by: Catalino Williamson MD on 01/25/2023 11:25 PM PDT Station ID: [id number]
[2023-01-26 01:23] LABS: B. PARAPERTUSSIS- RESP PCR PAN NOT DETECTED; B. PERTUSSIS- RESP PCR PANEL NOT DETECTED; C. PNEUMONIAE- RESP PCR PANEL NOT DETECTED; CORONAVIRUS 229E-RESP PCR NOT DETECTED; CORONAVIRUS HKU1-RESP PCR NOT DETECTED; CORONAVIRUS NL63-RESP PCR NOT DETECTED; CORONAVIRUS OC43-RESP PCR NOT DETECTED; HUMAN METAPNEUMOVIRUS NOT DETECTED; INFLUENZA A- RESP PCR PANEL NOT DETECTED; INFLUENZA B - RESP PCR PANEL NOT DETECTED; M. PNEUMONIAE- RESP PCR PANEL NOT DETECTED; PARAINFLUENZA VIRUS 1 NOT DETECTED; PARAINFLUENZA VIRUS 2 NOT DETECTED; PARAINFLUENZA VIRUS 3 NOT DETECTED; PARAINFLUENZA VIRUS 4 NOT DETECTED; RHINOVIRUS/ENTEROVIRUS NOT DETECTED; RSV- RESP PCR PANEL NOT DETECTED; SARS-CoV-2 -RESP PCR PANEL NOT DETECTED
[2023-01-26 04:02] VITALS: BP 121/82; O2SAT 100
[2023-01-26 04:09] LABS: MUDS CUTOFF CONCENTRATIONS CUTOFF CONC BELOW:
[2023-01-26 04:25] LABS: AMPHETAMINE SCREEN,URINE NEGATIVE (NEGATIVE); BARBITURATE SCREEN,UR NEGATIVE (NEGATIVE); BENZODIAZEPINES SCREEN, URINE NEGATIVE (NEGATIVE); COCAINE SCREEN URINE NEGATIVE (NEGATIVE); METHADONE SCREEN, URINE NEGATIVE (NEGATIVE); METHAMPHETAMINES SCREEN, URINE NEGATIVE (NEGATIVE); OPIATE SCREEN, URINE NEGATIVE (NEGATIVE); OXYCODONE SCREEN, URINE NEGATIVE (NEGATIVE); PROPOXYPHENE SCREEN, URINE NEGATIVE (NEGATIVE); THC CANNABINOID SCREEN, URINE NEGATIVE (NEGATIVE); TRICYCLIC ANTIDEPRESSANT,URINE NEGATIVE (NEGATIVE)
== END 2023-01-26 06:32 | disposition home or self-care (01) ==
LOC: EDUNIT# → ED 22:00
DX: F10.129 Alcohol abuse with intoxication, unspecified (principal); Y90.8 Blood alcohol level of 240 mg/100 ml or more; E83.51 Hypocalcemia; E87.6 Hypokalemia; I10 Essential (primary) hypertension; Z20.822 Contact with and (suspected) exposure to COVID-19
CPT/HCPCS: 36415; 71045; 80053; 80306; 83690; 85025; 87633; 93005; 96365; 96366; 96368; 99284; G0480; 80320

== ENCOUNTER 2023-05-12 08:26 | Outpatient (CLI) | payer MEDICARE, MEDICAID ==
[2023-05-12 13:33] LABS: ALBUMIN/GLOBULIN RATIO 1.7 (1.0-2.2); ALKALINE PHOSPHATASE 99 IU/L (42-121); ALT ALANINE AMINOTRANSFERASE 64 IU/L (10-60); AST ASPARTATE AMINOTRANSFERASE 109 IU/L (10-42); BILIRUBIN,TOTAL 0.8 mg/dL (0.2-1.0); BUN - BLOOD UREA NITROGEN 10 mg/dL (6-20); CALCIUM 8.8 mg/dL (8.5-10.3); CARBON DIOXIDE - CO2 18 mmol/L (21-32); CHLORIDE 105 mmol/L (101-111); CHOL/HDL RATIO 1.9 (<5.0); CHOLESTEROL 163 mg/dL; GFR - MDRD 75 (>89); GLUCOSE 146 mg/dL (74-104); HDL CHOLESTEROL 88 mg/dL; LDL CHOLESTEROL,CALCULATED 51 mg/dL; LDL/HDL RATIO 0.6 (<3.6); MAGNESIUM 1.8 mg/dL (1.7-2.3); POTASSIUM 3.7 mmol/L (3.5-4.5); SODIUM 137 mmol/L (135-145); TOTAL PROTEIN 6.3 g/dL (6.4-8.9); TRIGLYCERIDES 122 mg/dL (48-352); VLDL CHOLESTEROL 24 mg/dL
[2023-05-12 13:41] LABS: ESTIMATED AVERAGE GLUCOSE 117 mg/dL (70-100); HEMOGLOBIN A1c% 5.7 % (4.27-6.07)
[2023-05-16 10:07] LABS: HDL-P (TOTAL) 51.5 umol/L (>=30.5); LDL SIZE 20.7 nm (>20.5); LDL-P 466 nmol/L (<1000); LP-INSULIN RESISTANCE SCORE 47 (<=45); SMALL LDL-P 166 nmol/L (<=527)
== END 2023-05-12 08:27 | disposition home or self-care (01) ==
LOC: LAB.N 08:26
PROVIDERS: ATTEND Specialist
DX: E78.2 Mixed hyperlipidemia (principal); I10 Essential (primary) hypertension; E11.9 Type 2 diabetes mellitus without complications
CPT/HCPCS: 36415; 80053; 80061; 83036; 83704; 83721; 83735

== ENCOUNTER 2023-11-14 23:33 | Outpatient (CLI) | payer MEDICARE, MEDICAID | END 2023-11-14 23:59 | disposition critical access hospital (66) | LOC: EMS 23:33 | DX: R51.9 Headache, unspecified (principal); R42 Dizziness and giddiness; S01.81XA Laceration without foreign body of other part of head, initial encounter; W06.XXXA Fall from bed, initial encounter; Y92.003 Bedroom of unspecified non-institutional (private) residence as the place of occurrence of the external cause; F10.90 Alcohol use, unspecified, uncomplicated | CPT/HCPCS: A0425; A0427 ==

== ENCOUNTER 2023-11-14 23:56 | Emergency (ER) | payer MEDICARE, MEDICAID ==
[2023-11-15 00:08] LABS: BASOPHILS # (AUTO) 0.1 10^3/uL (0.0-0.1); BASOPHILS % (AUTO) 0.7 %; EOSINOPHILS # (AUTO) 0.2 10^3/uL (0.0-0.7); HCT - HEMATOCRIT 39.1 % (42.0-52.0); HGB - HEMOGLOBIN 13.2 g/dL (14.0-18.0); LYMPHOCYTES # (AUTO) 1.7 10^3/uL (1.5-3.5); LYMPHOCYTES % (AUTO) 18.5 %; MEAN CORPUSCULAR HEMOGLOBIN 33.6 pg (27.0-31.0); MEAN CORPUSCULAR HGB CONC 33.8 g/dL (32.0-36.0); MEAN CORPUSCULAR VOLUME 99.5 fL (80.0-94.0); MEAN PLATELET VOLUME 10.3 fL (7.4-11.4); MONOCYTES # (AUTO) 0.9 10^3/uL (0.0-1.0); MONOCYTES % (AUTO) 9.9 %; NEUTROPHILS # (AUTO) 6.1 10^3/uL (1.5-6.6); NEUTROPHILS % (AUTO) 68.3 %; PLT - PLATELET COUNT 185 10^3/uL (130-450); RED BLOOD COUNT 3.93 10^6/uL (4.70-6.10); RED CELL DISTRIBUTION WIDTH 13.2 % (12.0-15.0); WHITE BLOOD COUNT 8.9 x10^3/uL (4.8-10.8)
[2023-11-15] MEDS: SODIUM CHLORIDE 0.9% 1,000 ML IV STA ×2 (00:25→01:42)
[2023-11-15 00:28] LABS: ETOH - ETHANOL 133.8 mg/dL
[2023-11-15] MEDS: LIDOCAINE-EPINEPH-TETRACAINE 3 ML SYRINGE TOP STA (00:28)
[2023-11-15] MEDS: TETANUS/DIPHTHERIA/PERTUSSIS 0.5 ML SYRINGE IM ONE (00:28)
[2023-11-15 00:29] LABS: ALBUMIN 3.6 g/dL (3.2-5.5); ALBUMIN/GLOBULIN RATIO 1.6 (1.0-2.2); BILIRUBIN,TOTAL 0.5 mg/dL (0.2-1.0); CALCIUM 8.3 mg/dL (8.5-10.3); CREATININE 1.8 mg/dL (0.6-1.3); POTASSIUM 2.8 mmol/L (3.5-4.5); TOTAL PROTEIN 5.9 g/dL (6.4-8.9)
--- NOTE | 2023-11-15 01:16 | XRAY Report ---
PROCEDURE: Chest 1V INDICATIONS: dizziness TECHNIQUE: One view of the chest was acquired. COMPARISON: 01/25/2023. FINDINGS: Surgical changes and devices: None. Lungs and pleura: No pleural effusions or pneumothorax. Lungs are clear. Mediastinum: Mediastinal contours appear normal. Heart size is normal. Bones and chest wall: No suspicious bony lesions. Overlying soft tissues appear unremarkable. IMPRESSION: No acute cardiopulmonary process. Reviewed by: Jesus Sun MD on 11/15/2023 1:15 AM PDT Approved by: Jesus Sun MD on 11/15/2023 1:15 AM PDT Station ID: [id number]
--- NOTE | 2023-11-15 01:18 | CT Report ---
PROCEDURE: Cervical Spine WO INDICATIONS: head injury/ETOH TECHNIQUE: Noncontrast 3 mm thick sections acquired from the skull base to the T4 level. Sagittal and coronal r eformats were then constructed. For radiation dose reduction, the following was used: automated exp osure control, adjustment of mA and/or kV according to patient size. COMPARISON: None. FINDINGS: Image quality: Excellent. Bones: No fractures or dislocations. Loss of disc height, degenerative endplate changes and dorsal d isc osteophyte complex formation throughout cervical spine is seen more notably involving C3-4, C5-6 and C6-7 levels causing [id number] central canal stenosis and bilateral neural foraminal narrow ing. Visualized superior ribs are intact. Soft tissues: Prevertebral soft tissues are normal in thickness. No paravertebral hematomas. No ap ical pneumothoraces. IMPRESSION: 1. No acute cervical spine fracture or dislocation. 2. Degenerative disc disease throughout cervical spine. Reviewed by: Jesus Sun MD on 11/15/2023 1:17 AM PDT Approved by: Jesus Sun MD on 11/15/2023 1:17 AM PDT Station ID: [id number]
--- NOTE | 2023-11-15 01:19 | CT Report ---
PROCEDURE: Head WO INDICATIONS: head injury/ETOH TECHNIQUE: Noncontrast 4.5 mm thick angled axial sections acquired from the foramen magnum to the vertex. For r adiation dose reduction, the following was used: automated exposure control, adjustment of mA and/or kV according to patient size. COMPARISON: None. FINDINGS: Image quality: Excellent. CSF spaces: Basal cisterns are patent. No extra-axial fluid collections. Ventricles are normal in size and shape. Brain: No midline shift. No intracranial masses or hemorrhage. Reardon-white matter interface is norm al. Skull and face: Calvarium and visualized facial bones are intact, without suspicious lesions. Sinuses: Visualized sinuses and mastoids are clear. IMPRESSION: No acute intracranial pathology. Reviewed by: Jesus Sun MD on 11/15/2023 1:18 AM PDT Approved by: Jesus Sun MD on 11/15/2023 1:18 AM PDT Station ID: [id number]
[2023-11-15] MEDS: POTASSIUM CHLORIDE 20 MEQ TABLET PO ONE (01:44)
--- NOTE | 2023-11-15 01:53 | ED Physician Documentation ---
PD HPI HEAD INJURY - Stated complaint Stated Complaint: FALL - Chief complaint Chief Complaint: Laceration - History obtained from History obtained from: Patient, EMS - Additional information Additional information: Patient is a 63-year-old with a history of hypertension presenting for evaluation after an unwitnessed fall out of his bed tonight. Patient does admit to drinking alcohol this evening as he does every evening. He states he has been feeling lightheaded for the past week. He remembers being asleep in the bed and then recalls waking up on the floor. He does have a laceration to the l eft side of his head. Does not take a blood thinner. Is unsure of his last tetanus. Denies recent illness with cough or congestion, nausea, vomiting or diarrhea.Per EMS he was able to ambulate with them to their stretcher. Review of Systems Constitutional: denies: Fever Cardiac: denies: Chest pain / pressure Respiratory: denies: Dyspnea GI: denies: Abdominal Pain Skin: reports: Laceration (s) Neurologic: reports: Head injury PD PAST MEDICAL HISTORY - Past Medical History Past Medical History: Yes Cardiovascular: Congestive heart failure, Hypertension, High cholesterol Respiratory: Shortness of breath Endocrine/Autoimmune: None GI: GERD, Chronic diarrhea, Cholelithiasis, Other : None HEENT: Chronic hearing loss Psych: Depression, Anxiety, Other Musculoskeletal: None Derm: None - Past Surgical History Past Surgical History: Yes General: Cholecystectomy, Colonoscopy, Other Ortho: Hip replacement, Rotator cuff repair, Other - Present Medications Home Medications: Ambulatory Orders Medication Instructions Recorded Confirmed Furosemide [Lasix] 40 mg PO DAILY 10/28/16 08/01/18 Losartan Potassium [Cozaar] 100 mg PO DAILY 10/28/16 08/01/18 Omeprazole [PriLOSEC] 20 mg PO DAILY 10/28/16 08/01/18 Simvastatin [Zocor] 40 mg PO QPM 10/28/16 08/01/18 buPROPion [Wellbutrin Xl] 150 mg PO DAILY 10/28/16 08/01/18 carvediloL [Coreg] 12.5 mg PO BID 10/28/16 08/01/18 Gabapentin 300 mg PO DAILY 04/23/18 08/01/18 Iv Antibiotic 0 mg 07/31/18 - Allergies Allergies/Adverse Reactions: Allergies Allergy/AdvReac Type Severity Reaction Status Date / Time chlorhexidine AdvReac Rash Verified 11/15/23 00:15 - Social History Does the pt smoke?: No Smoking Status: Never smoker Does the pt drink ETOH?: Yes Does the pt have substance abuse?: No - Immunizations Immunizations are current?: Yes Immunizations: TDAP >10years/unknown - POLST Patient has POLST: No PD ED PE NORMAL - General General: Alert and oriented X 3, No acute distress, Well developed/nourished - HEENT HEENT: PERRL, EOMI, Moist mucous membranes, Pharynx benign, Other (3 cm laceration to left parietal scalp) - Cardiac Cardiac: RRR, Strong equal pulses - Respiratory Respiratory: No respiratory distress, Clear bilaterally - Abdomen Abdomen: Soft, Non tender, Non distended - Derm Derm: Warm and dry - Extremities Extremities: No deformity - Neuro Neuro: Alert and oriented X 3, brush cutter 2-12 intact, No motor deficit, No sensory deficit, Normal speech Eye Opening: Spontaneous Motor: Obeys Commands Verbal: Oriented GCS Score: 15 Results - Vitals Vitals: Vital Signs - 24 hr 11/15/23 11/15/23 11/15/23 00:11 01:52 02:01 Temperature 36.1 C L Heart Rate 87 84 Heart Rate [ 86 Sitting] Heart Rate [ 87 Standing] Heart Rate [ 85 Supine] Respiratory 18 20 Rate Blood Pressure 96/50 L 114/75 Blood Pressure 108/73 [Sitting] Blood Pressure 102/71 [Standing] Blood Pressure 110/80 [Supine] O2 Saturation 96 99 11/15/23 03:11 Temperature Heart Rate 89 Heart Rate [ Sitting] Heart Rate [ Standing] Heart Rate [ Supine] Respiratory 19 Rate Blood Pressure 107/65 Blood Pressure [Sitting] Blood Pressure [Standing] Blood Pressure [Supine] O2 Saturation 93 Oxygen O2 Source Room air - EKG (time done) 1204 EKG releavant findings:: EKG personally interpreted by author of this note. Relevant findings are: Rate 88, normal sinus rhythm, no STEMI, QTc 497, - Labs Labs: Laboratory Tests 11/15/23 11/15/23 00:02 00:02 WBC 8.9 RBC 3.93 L Hgb 13.2 L Hct 39.1 L MCV 99.5 H MCH 33.6 H MCHC 33.8 RDW 13.2 Plt Count 185 MPV 10.3 Neut # (Auto) 6.1 Lymph # (Auto) 1.7 [place] # (Auto) 0.9 Eos # (Auto) 0.2 Baso # (Auto) 0.1 Absolute Nucleated RBC 0.00 Nucleated RBC % 0.0 Sodium 135 Potassium 2.8 L Chloride 102 Carbon Dioxide 16 L Anion Gap 17.0 H BUN 20 Creatinine 1.8 H Estimated GFR (MDRD) 38 L Glucose 131 H Calcium 8.3 L Total Bilirubin 0.5 AST 46 H ALT 34 Alkaline Phosphatase 73 Total Protein 5.9 L Albumin 3.6 Globulin 2.3 Albumin/Globulin Ratio 1.6 Lipase 40 Ethyl Alcohol 133.8 Procedures - Laceration (location) L Parietal scalp Length in cm: 3 Wound type: Linear Anesthesia: LET Wound preparation: Hibiclens, Irrigated copiously NS Skin layer closure: [place] (4) Other: Patient tolerated well, No complications, Neurovascular intact, Tetanus booster given PD Medical Decision Making - ED course Complexity details: reviewed results, re-evaluated patient, d/w patient ED course: Patient is a 63-year-old male presenting for evaluation after an unwitnessed fall with a head injury in the setting of alcohol use. Also reports feeling lightheaded for the last week. Per EMS his blood pressure was low but it started to improve with IV fluids. Normal neuroexam. Has a laceration to the left scalp that was cleaned and stapled.Tetanus updated. CT head and cervical spine were reviewed and without significant findings. CBC, chemistries reviewed. Significant for mild elevation in creatinine to 1.8,Potassium 2.8, CO2 16. Ethanol 133. Patient was given 2 L of IV fluids with improvement in blood pressures. He does not appear septic. Chest x-ray is negative for effusion or pneumonia. Orthostatics were checked and negative. He is able to ambulate.He is on medications for his blood pressure but given reports of feeling lightheaded with changing positions recently and blood pressure readings here we will have him hold his blood pressure medications until he is seen in follow-up in the next week which she is agreeable to. Patient also counseled to decrease his alcohol use. Advised on wound care instructions, need for close follow-up and aware of concerning symptoms to return for. Departure - Departure Disposition: 01 Home, Self Care Clinical Impression: Head injury, Scalp laceration, Alcohol intoxication, Hypokalemia, Dehydration Condition: Stable Instructions: ED Dehydration, ED Head Injury Closed, ED Laceration Scalp Stitch Or Stap Follow-Up: eZna Camilo PA-C [Provider Admit Priv/Credential] - Comments: You were evaluated after a fall at home and a head injury. You have a laceration to the left side of your scalp that was closed with 4 joselin. These should be removed in 1 week on November 21. You can return to the ER or the walk-in clinic. The CT scan of your head and your neck as well as your chest x-ray do not show any injuries. Your labs show signs of dehydration and low potassium. Your blood pressure also was initially low and we did give you IV fluids as well as potassium replacement. I would recommend you increase your fluid intake with water through the day and also limit your alcohol use. I would also recommend you hold your blood pressure medication for the next week until you are seen for follow-up by your primary care provider. I do think it is important that you have close follow-up with your primary care doctor. Return to the ER with any worsening symptoms. Forms: PCP List
[2023-11-15 05:37] VITALS: BP 117/92; O2SAT 92
== END 2023-11-15 05:30 | disposition home or self-care (01) ==
LOC: EDUNIT# → ED 23:56
DX: S01.01XA Laceration without foreign body of scalp, initial encounter (principal); S09.90XA Unspecified injury of head, initial encounter; W06.XXXA Fall from bed, initial encounter; Y92.003 Bedroom of unspecified non-institutional (private) residence as the place of occurrence of the external cause; E86.0 Dehydration; E87.6 Hypokalemia; I95.9 Hypotension, unspecified; I10 Essential (primary) hypertension; F10.129 Alcohol abuse with intoxication, unspecified; Y90.6 Blood alcohol level of 120-199 mg/100 ml
CPT/HCPCS: 12002; 36415; 70450; 71045; 72125; 80053; 83690; 85025; 90471; 90715; 93005; 96360; 96361; 99284; A9270; G0480; 82077

== ENCOUNTER 2023-11-22 09:41 | Emergency (ER) | payer MEDICARE, MEDICAID ==
[2023-11-22 10:09] VITALS: BP 108/78; O2SAT 99
--- NOTE | 2023-11-22 11:15 | ED Physician Documentation ---
History of Present Illness - Stated complaint Stated Complaint: HEAD STAPLE REMOVAL - Chief complaint Chief Complaint: General - History obtained from History obtained from: Patient - Additonal information Additional information: The patient comes to the emergency department for chief complaint of needing joselin removed from his scalp. They were placed about 10 days ago, he says. The patient denies any problems with the wound. No drainage. He states it seems like it has been healing fine though he cannot see it. No other complaints at this time. PD PAST MEDICAL HISTORY - Past Medical History Cardiovascular: Congestive heart failure, Hypertension, High cholesterol Respiratory: Shortness of breath Endocrine/Autoimmune: None GI: GERD, Chronic diarrhea, Cholelithiasis, Other : None HEENT: Chronic hearing loss Psych: Depression, Anxiety, Other Musculoskeletal: None Derm: None - Past Surgical History Past Surgical History: Yes General: Cholecystectomy, Colonoscopy, Other Ortho: Hip replacement, Rotator cuff repair, Other - Present Medications Home Medications: Ambulatory Orders Medication Instructions Recorded Confirmed Furosemide [Lasix] 40 mg PO DAILY 10/28/16 11/22/23 Losartan Potassium [Cozaar] 100 mg PO DAILY 10/28/16 11/22/23 Omeprazole [PriLOSEC] 20 mg PO DAILY 10/28/16 08/01/18 buPROPion [Wellbutrin Xl] 150 mg PO DAILY 10/28/16 08/01/18 Gabapentin 300 mg PO DAILY 04/23/18 08/01/18 Rosuvastatin Calcium [Crestor] 40 mg PO DAILY 11/22/23 11/22/23 carvediloL [Coreg] 1.5 tab PO DAILY 11/22/23 11/22/23 - Allergies Allergies/Adverse Reactions: Allergies Allergy/AdvReac Type Severity Reaction Status Date / Time adhesive AdvReac Rash Verified 11/22/23 10:04 - Social History Does the pt smoke?: No Smoking Status: Never smoker Does the pt drink ETOH?: Yes Does the pt have substance abuse?: No - Immunizations Immunizations are current?: Yes Immunizations: TDAP >10years/unknown - POLST Patient has POLST: No PD ED PE NORMAL - Vitals Vital signs reviewed: Yes - General General: Alert and oriented X 3, No acute distress, Well developed/nourished - HEENT HEENT: EOMI, Moist mucous membranes, Other ([address] a very well- healed wound. No erythema. No swelling.) - Respiratory Respiratory: No respiratory distress - Derm Derm: Normal color, Warm and dry - Extremities Extremities: No deformity - Neuro Neuro: Other (Grossly intact) - Psych Psych: Normal mood, Normal affect Results - Vitals Vitals: Vital Signs - 24 hr 11/22/23 10:04 Temperature 36.5 C Heart Rate 58 L Respiratory 20 Rate Blood Pressure 108/78 O2 Saturation 99 Oxygen O2 Source Room air Procedures - Suture/staple Removal (location) - Minor scalp Suture/staple removal: # joselin (4), No complications PD Medical Decision Making - ED course Complexity details: considered differential, d/w patient ED course: 4 joselin removed, wound looks good. We have discussed wound care at home and the usual indications for return. The patient requested to leave to catch the bus prior to receiving discharge instructions. Departure - Departure Disposition: 01 Home, Self Care Clinical Impression: Removal of joselin Condition: Stable
== END 2023-11-22 11:31 | disposition home or self-care (01) ==
LOC: ED 09:41
DX: S01.01XD Laceration without foreign body of scalp, subsequent encounter (principal); X58.XXXD Exposure to other specified factors, subsequent encounter
CPT/HCPCS: 99281; 99282